=== PATIENT | female | born 1970 | race Caucasian/White ===

== ENCOUNTER → 2021-04-06 15:41 | Outpatient (CLI) | payer BC, SELFPAY ==
--- NOTE | ~2021-04-06 | MM_ITS ---
EXAMINATION: MM screening cherrie BI w hannah HISTORY: Screening mammogram TECHNIQUE: Craniocaudal and mediolateral oblique 3-D tomosynthesis images were obtained and synthetic 2-D images were generated. CAD analysis was submitted and interpreted. COMPARISON: No prior mammogram is available for comparison at this institution. BREAST PARENCHYMAL COMPOSITION: The breasts are almost entirely fatty. FINDINGS: There is no evidence of suspicious mass, calcification, or architectural distortion to sugg est malignancy in either breast. There has been no suspicious interval change. IMPRESSION: 1. No mammographic evidence of malignancy. 2. Recommend routine screening mammography in one year. BI-RADS Category 1: Negative Reviewed, dictated and finalized at location A. PLATE STAMPER
== END ==
DX: Z12.31 Encounter for screening mammogram for malignant neoplasm of breast (principal)
CPT/HCPCS: 77063; 77067

== ENCOUNTER → 2022-08-02 16:54 | Outpatient (CLI) | payer BC, SELFPAY ==
--- NOTE | ~2022-08-02 | MM_ITS ---
EXAMINATION: MM screening cherrie BI w hannah HISTORY: Screening mammogram TECHNIQUE: Craniocaudal and mediolateral oblique 3-D tomosynthesis images were obtained and synthetic 2-D images were generated. CAD analysis was submitted and interpreted. COMPARISON: 04/06/2021 BREAST PARENCHYMAL COMPOSITION: The breasts are almost entirely fatty. FINDINGS: No suspicious mass, calcification, or architectural distortion are identified in either ranjith ast to suggest malignancy. There has been no suspicious interval change. IMPRESSION: 1. No mammographic evidence of malignancy. 2. Recommend routine screening mammography in one year. BI-RADS Category 1: Negative Reviewed, dictated and finalized at location A. IC INFORMATION DIRECTOR
== END ==
PROVIDERS: Visit Provider Obstetrics & Gynecology
DX: Z12.31 Encounter for screening mammogram for malignant neoplasm of breast (principal)
CPT/HCPCS: 77063; 77067

== ENCOUNTER → 2023-06-19 13:56 | Outpatient (CLI) | payer BC, SELFPAY ==
--- NOTE | ~2023-06-19 | XR_ITS ---
XR hip LT min 2V DATE: 06/19/2023 14:27 INDICATION: Left hip pain. No injury. TECHNIQUE: AP and lateral views COMPARISON: None FINDINGS: There is severe left hip joint space narrowing and prominent left hip spurring, consistent with severe left hip primary osteoarthritis. No fracture or dislocation, avascular necrosis or bone destruction is detected. Normal alignment at the pubic symphysis and left sacroiliac joint. IMPRESSION: Severe left hip osteoarthritis Reviewed, dictated and finalized at location L. ITALITY HOST
== END ==
PROVIDERS: PCP Family Medicine; Visit Provider Family Medicine
DX: M16.12 Unilateral primary osteoarthritis, left hip (principal)
CPT/HCPCS: 73502

== ENCOUNTER 2023-07-25 15:30 | Outpatient (RCR) | payer BC, SELFPAY ==
--- NOTE | 2023-06-27 10:55 | OPREHPOC ---
Outpatient Therapy Plan of Care This is a Multidisciplinary Plan of Care that may contain components documented by all disciplines (PT, OT, and ST.) PT Problem 1 PT Problem #1 Knowledge Deficit PT Goal 1 Goal Pt to be IND with issued HEP Target Visit 4 PT Problem 2 PT Problem #2 Pain PT Goal 1 Goal Pt to report pain no greater than 3/10 in the last week. Target Visit 4 PT Goal 2 Goal Pt to report 75% improvement in overall symptoms Target Visit 4 PT Problem 3 PT Problem #3 Impaired Range of Motion PT Goal 1 Goal Pt to demonstrate L hip ROM equal to R hip Target Visit 4 PT Problem 4 PT Problem #4 Impaired Functional Mobil PT Goal 1 Goal Pt to demonstrates floor to stand transfer without external support to promote IND with gardening Target Visit 4 PT Goal 2 Goal Pt to demonstrate a functional lift and carry with 20lb box Target Visit 4
--- NOTE | 2023-06-27 10:55 | PTOPEVAL1 ---
Assessment and note entered by Devan Coyle, PT, DPT Evaluation Information Assessment Status Evaluation Diagnosis L hip pain Onset 1-2 years Subjective Information Pt states she has had progressive L hip pain for multiple years. She states her thigh will get really tight, and stretching this seems to help. She states she feels like she walks wrong d/t arthritis in her feet. She reports L thigh pain this is worse with prolonged rest periods. She states her pain increases when walking on uneven ground. Pt likes to garden, she states her hip is a limiting factor with this. 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 Reported Pain Level Pain Score 2: Self Report Assessment PT Clinical Summary Malinda presents to therapy today for her initial evaluation with a diagnosis of L hip pain. Today she demonstrates slight ROM and strength deficits when compared to her R side. She also ambulates with a midfoot drop and a Trendelenburg pattern. She has decreased core strength and L hip stability. Skilled therapy services are indicated to address the deficits noted above, to improve functional mobility, and to manage pain. LEFS: 62/80 - 13% disability Plan of Care Interventions Electrical Stimulation,Gait Training,Hot Pack/Cold Pack,Manual Therapy,Neuro Re-education, Therapeutic Activities,Therapeutic Exercise PT Services Indicated Yes Treatment Frequency and 1x/wk for 4 visits Duration These treatments will address the objective and functional deficits as defined above. The patient will be advanced safely and appropriately in order for the patient to progress towards his/her prior level of function. Additional exercises will be introduced and as well as a comprehensive home exercise program upon discharge, if needed, ?to ensure carryover of functional gains achieved in the clinic. This treatment plan has been reviewed and agreement upon by the patient.
--- NOTE | 2023-07-25 16:53 | PTOPDC ---
Assessment and note entered by Devan Coyle, PT, DPT Evaluation Information Assessment Status Evaluation Diagnosis L hip pain Onset 1-2 years Subjective Information Pt states her hip and leg have been feeling good, she did have a little bit of joint pain this week but it went away. Reported Pain Level Pain Score 0: Self Report Assessment PT Clinical Summary Malinda presents to therapy today for her progress report following 5 visits of skilled therapy to treat diagnosis of L hip pain. Today she demonstrates improved hip mobility and strength on the L side, she demonstrates improved gait pattern, and improved pain report. She has met or progress well towards her therapy goals and no longer requires skilled services. She will be discharged at this time. Plan of Care PT Services Indicated No
== END 2023-07-28 07:59 | disposition home or self-care (01) ==
LOC: ANHGOSHPT 15:30
PROVIDERS: PCP Family Medicine; Visit Provider Family Medicine
DX: M25.552 Pain in left hip (principal)
CPT/HCPCS: 97110; 97161; 97530

== ENCOUNTER 2023-10-10 15:51 | Outpatient (CLI) | payer BC, SELFPAY ==
--- NOTE | ~2023-10-10 | MM_ITS ---
EXAMINATION: MM screening cherrie BI w hannah HISTORY: Screening mammogram TECHNIQUE: Craniocaudal and mediolateral oblique 3-D tomosynthesis images were obtained and synthetic 2-D images were generated. CAD analysis was submitted and interpreted. COMPARISON: 08/02/2022, 04/06/2021 bilateral screening mammogram examinations BREAST PARENCHYMAL COMPOSITION: The breasts are almost entirely fatty. FINDINGS: There is no evidence of suspicious mass, calcification, or architectural distortion to sugg est malignancy in either breast. There has been no suspicious interval change. IMPRESSION: 1. No mammographic evidence of malignancy. 2. Recommend routine screening mammography in one year. BI-RADS Category 1: Negative Reviewed, dictated and finalized at location B.
== END 2023-10-10 15:52 ==
PROVIDERS: PCP Family Medicine; Visit Provider Obstetrics & Gynecology
DX: Z12.31 Encounter for screening mammogram for malignant neoplasm of breast (principal)
CPT/HCPCS: 77063; 77067

== ENCOUNTER 2023-10-24 11:45 | Outpatient (CLI) | payer BC, SELFPAY ==
[2023-10-24 13:26] LABS: Basophils Absolute Auto 0.1 K/mm3 (0.0-0.1); Basophils Percent Auto 0.5 % (0.2-1.2); Eosinophils Absolute Auto 0.3 K/mm3 (0-0.3); Eosinophils Percent Auto 2.8 % (0-4.4); Hematocrit 38.3 % (37.0-47.0); Hemoglobin 12.5 g/dL (12.0-15.0); Immature Granulocyte Absolute 0.05 K/mm3 (0.00-0.031); Immature Granulocyte Percent A 0.5 % (0-0.5); Lymphocytes Absolute Auto 2.76 K/mm3 (0.9-3.2); Lymphocytes Percent Auto 28.9 % (18.3-44.2); Mean Corpuscular HGB Conc 32.6 g/dl (32-36); Mean Corpuscular Hemoglobin 30.5 pg (26-34); Mean Corpuscular Volume 93.4 fl (80-100); Mean Platelet Volume 10.4 fl (7.4-10.4); Monocytes Absolute Auto 0.5 K/mm3 (0.1-0.6); Monocytes Percent Auto 5.4 % (2.6-8.5); Neutrophils Absolute Auto 5.9 K/mm3 (1.3-6.7); Neutrophils Percent Auto 61.9 % (45.5-73.1); Platelet Count Result 348 k/mm3 (150-375); Red Cell Distribution Width 13.6 % (11.5-14.5); White Blood Count 9.6 K/mm3 (4.5-10.0)
[2023-10-24 15:49] LABS: Hemoglobin A1C 5.6 % (<5.7)
[2023-10-24 18:47] LABS: Alanine Aminotransferase 35 U/L (6-35); Albumin Level 4.5 g/dL (3.5-5.1); Alkaline Phosphatase 103 U/L (38-126); Anion Gap 8 mmol/L (4-12); Aspartate Amino Transferase 38 U/L (14-36); Bilirubin,Total 1.4 mg/dL (0.2-1.3); Blood Urea Nitrogen 15 mg/dL (7-17); Carbon Dioxide 26 mmol/L (22-30); Chloride 104 mmol/L (98-107); Cholesterol 266 mg/dL (0-200); Estimated Glomerular Filt Rate > 60; Glucose 105 mg/dL (65-110); HDL Direct 72 mg/dL; Potassium 4.9 mmol/L (3.4-5.0); Sodium 138 mmol/L (137-145); Triglycerides 118 mg/dL (<150)
[2023-10-24 18:58] LABS: LDL Cholesterol Direct 143 mg/dL
[2023-10-24 19:03] LABS: Free T4 Free Thyroxine 1.66 ng/mL (0.78-2.19); Vitamin D 25 Hydroxy 73.1 ng/mL
[2023-10-24 19:18] LABS: Thyroid Stimulating Hormone 0.448 uIU/mL (0.465-4.680)
== END 2023-10-24 11:46 | disposition home or self-care (01) ==
LOC: ANHGOSHLAB 11:46
PROVIDERS: PCP Family Medicine; Visit Provider Family Medicine
DX: E03.9 Hypothyroidism, unspecified (principal); R53.83 Other fatigue; R73.03 Prediabetes; E55.9 Vitamin D deficiency, unspecified; Z13.220 Encounter for screening for lipoid disorders; Z13.228 Encounter for screening for other metabolic disorders
CPT/HCPCS: 36415; 80053; 80061; 82306; 83036; 84439; 84443; 85025

== ENCOUNTER 2023-12-10 16:14 | Emergency (ER) | payer BC, SELFPAY ==
[2023-12-10 16:19] VITALS: BP 136/83; PULSE 113; RESP 16; TEMP 37.8; O2SAT 97
--- NOTE | 2023-12-10 16:27 | ED.GENADULT ---
HPI - General Adult General Chief complaint: Abdominal Pain Stated complaint: FEVER/STOMACH PAIN/HEADACHE Source: patient and RN notes reviewed Mode of arrival: ambulatory Limitations: no limitations History of Present Illness HPI narrative: 53-year-old female presented for complaint burning with urination, headache, fever up to 102. Onset yesterday. Endorses frequency and urgency along with some lower abdominal pressure and nausea today. She took Pepto-Bismol. Denies hematuria, vomiting, flank pain, constipation, diarrhea, or lethargy. Denies URI symptoms. Completed clindamycin 5 days ago for dental work. Related Data Home Medications Medication Instructions Recorded Confirmed cholecalciferol (vitamin D3) 125 125 mcg PO DAILY 06/19/23 12/10/23 mcg (5,000 unit) capsule multivitamin 1 tablet PO DAILY 06/19/23 12/10/23 spironolactone 100 mg tablet 100 mg PO DAILY 06/19/23 12/10/23 Allergies Allergy/AdvReac Type Severity Reaction Status Date / Time amoxicillin Allergy Mild Hives Verified 12/10/23 16:32 Review of Systems Review of Systems: CONSTITUTIONAL: Denies body aches, reports fever CARDIOVASCULAR: Denies chest pain, palpitations, or edema. RESPIRATORY: Denies cough or dyspnea. GASTROINTESTINAL: reports nausea Denies abdominal pain, vomiting, or diarrhea. GENITOURINARY: Reports dysuria, frequency, urgency, hematuria, denies flank pain SKIN: Denies rash, itching, or wounds. MUSCULOSKELETAL: Denies back pain or myalgia. [facility] Surgical History Surgical History Hx of cholecystectomy Family History Family History Father Melanoma Mother Cancer, skin, squamous cell Hypertension Heart disease Sibling Malignant neoplasm of prostate Grandparent Hypertension Heart disease Cerebrovascular accident Grandparent Diabetes mellitus Heart disease Cerebrovascular accident Social History Social History Social History: Caffeine- 5 cans of diet soda daily Smoking status: Never smoker Second hand tobacco smoke exposure: Yes Alcohol intake: current Alcohol use details: Monthly Substance use: never Do You Feel Safe in your Home?: Yes Lack of Transportation: No Lack of Food: Sometimes True Current Housing: I Have Housing Concerned About Future Housing: No Difficulty Paying Gas/Electric Bills: No Difficulty Paying for Meds: No Currently Unemployed: No Education: Master's Degree or Higher Difficulty w/ Childcare or Family Care: No Living arrangements: with family Occupation/Education: occupation 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 Please see nursing chart for further information. There is no relevant family history pertinent to the presenting complaint Exam Narrative: GENERAL: Well-appearing ENT: Mucous membranes pink and moist. NECK: Normal AROM. Supple. CHEST: No respiratory distress. Clear to auscultation. HEART: Regular rate and rhythm. ABDOMEN: Soft, nontender, nondistended, normal active bowel sounds. No CVA tenderness SKIN: Warm, dry, no rash. NEURO: No focal deficits. Alert and oriented x3. Gait steady. PSYCH: Normal affect. No signs of depression or anxiety. Course Course Emergency Course: Patient is aware of diagnosis, understands and agrees to treatment plan. Anticipatory guidance given. Patient agrees to follow-up as directed and is aware of reasons to seek care at the emergency department. Portions of this record may have been created with voice recognition software Level of [employer]
[2023-12-10 16:31] LABS: EDUAAPPEAR Cloudy; EDUABILI Negative; EDUABLOOD 2+; EDUACOLOR1 Yellow; EDUAGLUCOSE Negative; EDUAKETONE 1+; EDUALEUKO 1+; EDUANITRATE Positive; EDUAPH 5.5; EDUAPROTEIN 2+; EDUASPGRAVITY 1.015; EDUAUROBILI 0.2
== END 2023-12-10 16:40 | disposition home or self-care (01) ==
PROVIDERS: Emergency Provider Nurse Practitioner Family; PCP Family Medicine
DX: N30.01 Acute cystitis with hematuria (principal); B96.20 Unspecified Escherichia coli [E. coli] as the cause of diseases classified elsewhere
CPT/HCPCS: 81003; 87077; 87086; 87186; 99213; G0463

== ENCOUNTER 2023-12-23 18:37 | Emergency (ER) | payer BC, SELFPAY ==
[2023-12-23 18:45] VITALS: BP 141/91; PULSE 85; RESP 16; TEMP 36.8; O2SAT 100
--- NOTE | 2023-12-23 18:53 | ED.SKABFB ---
HPI - Skin/Abscess/Foreign Bdy General Chief complaint: Skin/Abscess/Foreign Body Stated complaint: ABSCESS Time Seen by Provider: 12/23/23 18:40 Source: patient, RN notes reviewed and old records reviewed Mode of arrival: ambulatory Limitations: no limitations History of Present Illness HPI narrative: 53-year-old female to [facility] for complaint abscess to right lower abdomen. Patient states that an asymptomatic nodule had been present for over a year and that it became inflamed and tender to touch 4 days ago. Patient states that she squeezed area at home 3 days ago in an attempt to induce drainage. Patient states that area has become increasingly red, tender with increased drainage. Patient hypertensive in triage. Patient denies pertinent medical history, fever, nausea, joint pain, recent illness, known injury. Respirations even and nonlabored. Patient in no acute distress. Related Data Home Medications Medication Instructions Recorded Confirmed cholecalciferol (vitamin D3) 125 125 mcg PO DAILY 06/19/23 12/23/23 mcg (5,000 unit) capsule multivitamin 1 tablet PO DAILY 06/19/23 12/23/23 spironolactone 100 mg tablet 100 mg PO DAILY 06/19/23 12/23/23 Allergies Allergy/AdvReac Type Severity Reaction Status Date / Time amoxicillin Allergy Mild Hives Verified 12/23/23 18:49 Review of Systems Review of Systems: All systems reviewed & are unremarkable except as noted in HPI and below Constitutional: Constitutional: Reports no additional constitutional complaints Eyes: Eyes: Reports no additional eye complaints ENT: Reports system reviewed and no additional complaints, except as documented Cardiovascular: Cardiovascular: Reports no additional cardiovascular complaints, Denies chest pain and Denies dyspnea Respiratory: Respiratory: Reports no additional respiratory complaints, Denies cough and Denies dyspnea Musculoskeletal: Musculoskeletal: Reports no additional musculoskeletal complaints Neurologic: Reports system reviewed and no additional complaints, except as documented Psychiatric: Psychiatric: Reports no additional psychiatric complaints PMFSH Surgical History Surgical History Hx of cholecystectomy Family History Family History Father Melanoma Mother Cancer, skin, squamous cell Hypertension Heart disease Sibling Malignant neoplasm of prostate Grandparent Hypertension Heart disease Cerebrovascular accident Grandparent Diabetes mellitus Heart disease Cerebrovascular accident Social History Social History Social History: Caffeine- 5 cans of diet soda daily Smoking status: Never smoker Second hand tobacco smoke exposure: Yes Alcohol intake: current Alcohol use details: Monthly Substance use: never Do You Feel Safe in your Home?: Yes Lack of Transportation: No Lack of Food: Sometimes True Current Housing: I Have Housing Concerned About Future Housing: No Difficulty Paying Gas/Electric Bills: No Difficulty Paying for Meds: No Currently Unemployed: No Education: Master's Degree or Higher Difficulty w/ Childcare or Family Care: No Living arrangements: with family Occupation/Education: occupation 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 There is no relevant family history pertinent to the patient complaint. Exam Const: General: cooperative, healthy appearing, comfortable, no acute distress, alert and well nourished Nutritional Appearance: well nourished Orientation/consciousness: patient oriented x3 Limitations: no
== END 2023-12-23 19:27 | disposition home or self-care (01) ==
PROVIDERS: Emergency Provider Nurse Practitioner Family; PCP Family Medicine
DX: L02.211 Cutaneous abscess of abdominal wall (principal)
CPT/HCPCS: 87070; 87075; 87076; 87205; 99213; G0463

== ENCOUNTER 2024-02-19 08:42 | Outpatient (CLI) | payer BC, SELFPAY ==
--- NOTE | ~2024-02-19 | XR_ITS ---
AP view of the pelvis and AP and lateral views of the left hip Clinical history: Pain Findings: No acute fracture or dislocation is seen. Osseous alignment is anatomic. There is severe le ft hip joint osteoarthritis, joint space narrowing, reactive sclerosis, probable subtle chondral cyst ic change at the acetabular roof and femoral head. Femoral head neck junction osteophyte present. Rig ht hip joint is intact. Soft tissues are unremarkable. Impression: Severe left hip joint osteoarthritis, as detailed above. Reviewed, dictated and finalized at location M. Impression: Severe left hip joint osteoarthritis, as detailed above.
== END 2024-02-19 08:43 | disposition home or self-care (01) ==
LOC: GOSHIMG 08:43
PROVIDERS: PCP Orthopaedic Surgery; Visit Provider Orthopaedic Surgery
DX: M16.12 Unilateral primary osteoarthritis, left hip (principal)
CPT/HCPCS: 73502

== ENCOUNTER 2024-06-04 15:44 | Outpatient (CLI) | payer BC, SELFPAY ==
[2024-06-04 18:24] LABS: Basophils Absolute Auto 0.1 K/mm3 (0.0-0.1); Basophils Percent Auto 0.8 % (0.2-1.2); Eosinophils Absolute Auto 0.4 K/mm3 (0-0.3); Hematocrit 34.9 % (37.0-47.0); Hemoglobin 11.8 g/dL (12.0-15.0); Immature Granulocyte Absolute 0.02 K/mm3 (0.00-0.031); Immature Granulocyte Percent A 0.2 % (0-0.5); Lymphocytes Percent Auto 35.9 % (18.3-44.2); Mean Corpuscular HGB Conc 33.8 g/dl (32-36); Mean Corpuscular Hemoglobin 31.7 pg (26-34); Mean Corpuscular Volume 93.8 fl (80-100); Mean Platelet Volume 9.9 fl (7.4-10.4); Monocytes Absolute Auto 0.6 K/mm3 (0.1-0.6); Monocytes Percent Auto 6.2 % (2.6-8.5); Neutrophils Absolute Auto 5.3 K/mm3 (1.3-6.7); Neutrophils Percent Auto 52.9 % (45.5-73.1); Platelet Count Result 350 k/mm3 (150-375); Red Blood Count 3.72 M/mm3 (4.2-5.4); Red Cell Distribution Width 12.9 % (11.5-14.5)
[2024-06-04 18:33] LABS: Iron 63 ug/dL (37-170)
[2024-06-04 18:36] LABS: Alanine Aminotransferase 31 U/L (6-35); Albumin Level 4.3 g/dL (3.5-5.1); Alkaline Phosphatase 97 U/L (38-126); Anion Gap 3 mmol/L (4-12); Aspartate Amino Transferase 35 U/L (14-36); Blood Urea Nitrogen 23 mg/dL (7-17); Carbon Dioxide 28 mmol/L (22-30); Chloride 105 mmol/L (98-107); Estimated Glomerular Filt Rate 47; Glucose 89 mg/dL (65-110); Potassium 4.3 mmol/L (3.4-5.0); Sodium 136 mmol/L (137-145)
[2024-06-04 18:43] LABS: Percent Iron Saturation 17 % (20-50); TOTAL IRON BINDING CAPACITY 376 ug/dL (261-462)
[2024-06-04 19:05] LABS: Thyroid Stimulating Hormone 0.043 uIU/mL (0.465-4.680)
[2024-06-04 19:41] LABS: Folic Acid > 20.0 ng/mL (2.76->20)
== END 2024-06-04 15:45 | disposition home or self-care (01) ==
LOC: ANHGOSHLAB 15:45
PROVIDERS: PCP Family Medicine; Visit Provider Family Medicine
DX: E03.9 Hypothyroidism, unspecified (principal); Z13.228 Encounter for screening for other metabolic disorders; Z12.11 Encounter for screening for malignant neoplasm of colon; D50.9 Iron deficiency anemia, unspecified; R53.83 Other fatigue; D64.9 Anemia, unspecified
CPT/HCPCS: 36415; 80053; 82607; 82728; 82746; 83540; 83550; 84443; 85025

== ENCOUNTER 2024-06-09 11:39 | Outpatient (CLI) | payer BC, SELFPAY ==
[2024-06-09 16:03] LABS: Urine Cotinine NEGATIVE
[2024-06-09 16:39] LABS: MRSA (PCR) NOT DETECTED (NOT DETECTE)
[2024-06-09 21:03] LABS: Hemoglobin A1C 5.5 % (<5.7)
== END 2024-06-09 11:40 | disposition home or self-care (01) ==
PROVIDERS: PCP Clinical Nurse Specialist; Visit Provider Orthopaedic Surgery
DX: Z01.818 Encounter for other preprocedural examination (principal); M16.12 Unilateral primary osteoarthritis, left hip
CPT/HCPCS: 80307; 83036; 87641

== ENCOUNTER 2024-06-09 13:45 | Outpatient (NON) | payer BC, SELFPAY ==
[2024-06-09 19:47] LABS: IFOB Positive Control Positive; Immunochemical Fecal Occult Bl Negative (N)
== END 2024-06-09 13:46 | disposition home or self-care (01) ==
LOC: ANHGOSHLAB 13:45
PROVIDERS: PCP Clinical Nurse Specialist; Visit Provider Family Medicine
DX: D64.9 Anemia, unspecified (principal)
CPT/HCPCS: 82274

== ENCOUNTER 2024-07-08 00:36 | Day surgery (SDC) | payer BC, SELFPAY ==
--- NOTE | 2024-06-09 11:44 | PC.NURSE ---
Report to the Outpatient Waiting Room, entrance under the green pavilion located off [facility], at time __6 am on date __07/08/24 . Planned Procedure Time: __7:30 am .? Time changes happen often and if your time is changed the preop area will call you the afternoon before. - You and your visitor will be asked to self-screen and do not enter if you have any COVID symptoms. Please call surgeon if you need to reschedule. - A mask is optional within the hospital at this time. Patients may have clear liquids (water, carbonated beverages, clear teas, apple juice) until 3 hours prior to surgery( 4:30 am) with a maximum of 20 ounces. - No food from midnight until time of surgery and no smoking. This includes no chewing gum, candy or mints. - Infants may have breast milk until 4 hours before surgery, infant formula 6 hours prior to surgery. - Children will be allowed to drink immediately following surgery.? If applicable, please bring a bottle or sippy cup to assist with drinking. Juice, water, soda, and popsicles are readily available.? For infants on formula, please bring formula the day of surgery.? Pacifiers are allowed. Take only the following medications with a SIP of water on the morning of surgery: _LEVOTHYROXIN, DO NOT STOP ANY OF YOUR OTHER PRESCRIPTION MEDICATIONS PRIOR TO SURGERY EXCEPT THE FOLLOWING Medications to discontinue per physician ____HOLD IBUPROFEN 7 DAYS PRE OP PER DR ADAME LAST DOSE06/30/24. MAY TAKE TYLENOL IF NEEDED FOR PAIN. HOLD ALL VITAMINS AND SUPPLEMENTS 3 DAYS PRE OP .LAST DOSE 07/04/24 Please no make-up, nail cymraes, hairspray, perfume, deodorant, or body powder the day of surgery.? No jewelry (including any body piercings) or valuables the day of surgery, leave them at home.? Please take a shower or bath the night before, or the morning of, surgery with an antibacterial soap.? Wear comfortable, loose fitting clothing.? Children are encouraged to wear pajamas. - Jewelry must be removed prior to entering the operating room.? Rings and piercings that are not removed may be cut off. - The hospital will not accept responsibility for valuables.? - Please leave all valuables, including medications, at home the day of surgery. If you are going home after surgery, a licensed skidder driver must drive you home.? - NO public transportation without another adult if you receive anesthesia. - We recommend that an adult stay with you for 24 hours following discharge. - We also recommend that you do not drive, make important decision, drink alcoholic beverages, or take any drugs that were not prescribed by your health care provider for at least 24 hours after your discharge time. For Pediatric surgeries, we recommend two adults accompany the child home. Follow any additional instructions given to you from your surgeon. VERBAL AND WRITTEN instructions given to _PATIENT AND SPOUSE BRIAN and asked if any additional questions and then verbalized understanding. Patient advised to call surgeon office or pre surgery nurse liaison [phone] if any additional questions.
[2024-06-09 11:48] VITALS: BMI 38.2
[2024-06-09 12:28] VITALS: BP 127/83; PULSE 81; RESP 18; TEMP 36.7; O2SAT 97
[2024-07-08] VITALS (12 sets, daily range): BP systolic 101–137; BP diastolic 52–74; PULSE 70–102; RESP 14–20; TEMP 35.9–37.1; O2SAT 92–100
--- NOTE | ~2024-07-08 | XR_ITS ---
EXAMINATION: XR hip LT min 2V DATE: 07/08/2024 10:29 INDICATION: Left total hip arthroplasty TECHNIQUE: 2 views left hip FINDINGS: There is a left total hip arthroplasty in expected position. Subcutaneous gas with soft ti ssue swelling are consistent with recent surgery. IMPRESSION: 1. Recent left total hip arthroplasty. Reviewed, dictated and finalized at location B. [facility]DERING
--- OUTSIDE RECORDS SUMMARY | 2024-07-08 00:38 | XMS_ITS | Clinical Summary ---
Author Organization [facility] Address [address] [place] [address] Care Team Providers Care Photograph Retoucher Name Role Phone Sandra Frye MD Unavailable Keyla Borrego MD Unavailable [phone] Pcp, Farhan Grant Im-Fm Primary Care Provider Unavailable Source Comments [facility],non-owned Affiliates and Associated Physician Practices is amultiple site organization consisting of ambulatory clinics and hospital sitesin [place], [place], [place] and [place]. This disclosure is being madepursuant to the Care Everywhere program and may not contain all information available regarding this patient. Last updated 18.[facility] Allergies Active Allergy Reactions Criticality Noted Date Comments Amoxicillin Rash Low 10/21/2013 Penicillins 10/18/2013 Medications * Be aware that medications may not be up to date on this document. Alwaysverify current medications with the patient. Medication Sig Dispensed Refills Start Date End Date Status multivitamin daily (THERAGRAN) tablet Take 1 (one) tablet by mouth daily with food Active Cholecalciferol (VITAMIN D) 2000 UNITS CAPS capsule Take 1 (one) capsule by mouth 2 times daily Active triamcinolone (NASACORT AQ) 55 MCG/ACT nasal inhaler USE 2 SPRAYS IN EACH NOSTRIL DAILY 1 Inhaler 6 04/21/2014 Active Synthroid 175 MCG tabletIndications :Hypothyroidism, unspecified type TAKE 1 TABLET BY MOUTH ONCE DAILY BEFORE BREAKFAST 90 tablet 04/21/2023 Active metFORMIN ER 24hr (Glucophage XR) 500 MG tabletIndications :PCOS (polycystic ovarian syndrome) TAKE 2 TABLETS ONCE DAILY 60 tablet 04/28/2023 Active spironolactone (Aldactone) 100 MG tabletIndications :Other androgenic alopecia Take 1 (one) tablet by mouth once daily 90 tablet 06/10/2024 Active spironolactone (Aldactone) 100 MG tabletIndications :Other androgenic alopecia Take 1 (one) tablet by mouth once daily 90 tablet 3 01/31/2023 06/09/2024 Discontinued (Reorder) Active Problems Problem Noted Date Diagnosed Date Primary hypertension 08/19/2022 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 primary monoval ent 12+ yr 0.3mL Purple cap 05/23/2021 INFLUENZA VACCINE 04/02/2022,03/16/2021,03/16/20 18 TDAP (7yrs+) 11/29/2015 Zoster Hzv Vacc Recombinant Inj Im 08/27/2019, iNFLUENZA VACCINE, RECOM-KAMARA, QUADR. (FLUBLOCK QUADRIVALENT; 18Y+) (RIV4) 03/10/2020 Family History Medical History Relation Name Comments None Known Brother None Known Father None Known Maternal Aunt None Known Maternal Grandfather Diabetes Maternal Grandmother Hypertension Maternal Grandmother Cancer - Colon Maternal Uncle Cancer - Other Mother Cancer - Skin, Melanoma Mother Hypercholesterolemia Mother Hypertension Mother Diabetes Other 1 grandparent x2 Hypertension Other 2 grandparent Stroke Other 3 grandparent x2 MS Other 4 grandparent x2 None Known Paternal Aunt None Known Paternal Grandfather Diabetes Paternal Grandmother None Known Paternal Uncle None Known Sister Asthma Neg Hx CVA Neg Hx Cancer - Breast Neg Hx Cancer - Skin, Non Melanoma Neg Hx Eczema Neg Hx Hemophilia Neg Hx Psoriasis Neg Hx Relation Name Status Comments Brother Alive Father Alive Maternal Aunt Maternal Grandfather Maternal Grandmother Maternal Uncle Mother Alive skin cancer Other 1 Other 2 Other 3 Other 4 Paternal Aunt Paternal Grandfather Paternal Grandmother Paternal Uncle Sister Social History Tobacco Use Types Packs/Day Years Used Date Smoking Tobacco: Never Smokeless Tobacco: Never Tobacco Cessation:Counseling Given: Not Answered Alcohol Use Standard Drinks/Week Comments No 0 (1 standard drink = 0.6 oz pur e alcohol) PHQ-2 Answer Date Recorded PHQ2 TOTAL SCORE 0 08/19/2022 Sex and Gender Information Value Date Recorded Sex Assigned at Female 01/27/2021 3:50 PM CDT Gender Identity Female 01/27/2021 3:50 PM CDT Sexual Orientation Not on file Last Filed Vital Signs Vital Sign Reading Time Taken Comments Blood Pressure 130/80 08/19/2022 3:27 PM CDT Pulse 83 08/19/2022 3:15 PM CDT Temperature 36.4 C (97.5 F) 08/19/2022 3:15 PM CDT Respiratory Rate 16 08/19/2022 3:15 PM CDT Oxygen Saturation 99% 08/19/2022 3:15 PM CDT Inhaled Oxygen Concentration - - Weight 111.4 kg (245 lb 8 oz) 08/19/2022 3:15 PM CDT Height 165.1 cm (5' 5 ) 08/19/2022 3:15 PM CDT Body Mass Index 40.85 08/19/2022 3:15 PM CDT Plan of Treatment Upcoming Encounters Date Type Department Care Team (Late st Contact Info) Description 09/24/2024 2:50 PM CDT Office Visit [facility] - Dermatology [address] [place] [address], [place] [phone] Keyla Borrego MD [address] [place] [address] [address] [place] [address] Health Maintenance Due Date Last Done Comments COLON MONITORING 1968 [address] COLONOGRAPHY - COLON CA SCREENING 1968 FIT - COLON CA SCREENING 1968 FLEX SIG - COLON CA SCREENING 1968 PNEUMOCOCCAL VACCINE 50+ (1 of 1 - PCV) 2018 MAMMOGRAM 04/06/2022 04/06/2021, 04/03, 03/05/2019, Additional history exists PAP SMEAR 12/02/2023 12/01/2020, 052 06/2020 (Done Outside Per Patient), 08/14/2016, Additional history exists COVID-19 VACCINE ( - season) 2024 05/23/2021, 08/23/2020, 07/30/2020 INFLUENZA VACCINE (#1) 2024 2, 03/16/2021, 03/10/2020, Additional history exists DEPRESSION SCREENING 06/02/2024 08/19/2022, 07/30/19 22 COLOGUARD (AGES 45-75) - COLON CA SCREENING 03/07/2025 03/07/2022 SCREENING FOR DIABETES 08/19/2025 3, 05/22/2022, 02/18/2022, Additional history exists DTAP/TDAP/TD VACCINES (2 - Td or Tdap) 11/28/2025 11/29/2015 LIPID TESTING 05/22/2027 05/22/2022, 01/31, 02/23/2020, Additional history exists COLONOSCOPY - COLON CA SCREENING 03/15/2029 03/15/2019 (Done Outside Per Report) Colorectal Cancer Screening 03/15/2029 ZOSTER VACCINE Completed 08/27/2019, 01/26/2019 HEPATITIS B VACCINE Discontinued HEPATITIS C SCREENING Discontinued HIB VACCINE Aged Out No longer eligi ble based on patient's age to complete this topic HIV SCREENING Discontinued HPV VACCINE Aged Out No longer eligi ble based on patient's age to complete this topic MENINGOCOCCAL (Group B) VACCINE Aged Out No longer eligible based on patient's age to complete this topic MENINGOCOCCAL VACCINE Aged Out No carlos neil eligible based on patient's age to complete this topic PNEUMOCOCCAL VACCINE Aged Out No long er eligible based on patient's age to complete this topic Goals Goal Patient Goal Type Associated Problems Recent Progress Patient-Stated? Author Blood Pressure < 140/90 Blood Pressure 130/80( 023 3:27 PM CDT) Pamella Barajas Procedures Procedure Name Priority Date/Time Associated Diagnosis Comments HEMOGLOBIN A1C - POINT OF CARE (AMB) Routine 08/19/2022 4:22 PM CDT PCOS (polycystic ovarian syndrome) LIPID PROFILE Routine 05/22/2022 9:11 AM SOFTWARE SALES REPRESENTATIVE Hyperlipidemia, unspecified hyperlipidemia type COLOGUARD TEST Routine 03/07/2022 7:48 AM CDT Colon cancer screening MAMMO BILAT SCREENING Routine 04/06/2021 Encounter for screening for malignant neoplasm of breast, unspecified screening modality CYTOLOGY SMEAR PAP THIN PREP HAROLDO 07/10/1998 9:23 AM SOFTWARE SALES REPRESENTATIVE from Last 3 Months or Most Recently Relevant to Health Maintenance Results * HEMOGLOBIN A1C - POINT OF CARE (AMB) (08/19/2022 4:22 PM CDT) Hemoglobin A1c POCT 5.5 % [facility] [address] Expiration Date 04/30/2024 [facility] Lot # [id number] [facility] [place] QC Verified Yes Yes [facility] [place] Blood BLOOD SPECIMEN / Unknown 08/19/2022 4:22 PM CDT Odilia Domínguez MD LAB - POINT OF CARE ORDERABLES [facility] [address] [phone] * (ABNORMAL) LIPID PROFILE (05/22/2022 9:11 AM SOFTWARE SALES REPRESENTATIVE) Cholesterol 232(H) 100 - 199 mg/dL [facility] ACCOUNT BILL Triglycerides 99 0 - 149 mg/dL [facility] ACCOUNT BILL HDL Cholesterol 67 >39 mg/dL [facility] ACCOUNT BILL VLDL Calculated 17 5 - 40 mg/dL [facility] ACCOUNT BILL LDL Calculated 148(H) 0 - 99 mg/dL [facility] ACCOUNT BILL Comment NOT AVAILABLE [facility] ACCOUNT BILL Comment: FASTING Result cannot be obtained for this observation. Blood BLOOD SPECIMEN / Unknown 05/22/2022 9:11 AM SOFTWARE SALES REPRESENTATIVE 05/22/2022 Narrative Resulting Agency Comment Lab Testing performed at: [facility] [place] [address] [facility] [phone] Connie D Dat RADIAL ARM SAW OPERATOR-BISQUE FINISHER LAB - CHEMISTR Y ORDERABLES [facility] [place] [address] [place] [address] * [id number] COLOGUARD TEST *Associate with Z12.11 OR Z12.12 Dx Codes* (03/07/2022 7:48 AM CDT) Cologuard Negative Negative [facility] Comment: NEGATIVE TEST RESULT. A negative Cologuard result indicates a low likelihood that a colorectal cancer (CRC) or advanced adenoma (adenomatous polyps with more advanced pre-malignant features) is present. The chance that a person with a negative Cologuard test has a colorectal cancer is less than 1 in 1500 (negative predictive value >99.9%) or has an advanced adenoma is less than 5.3% (negative predictive value 94.7%). These data are based on a prospective cross-sectional study of 10,000 individuals at average risk for colorectal cancer who were screened with both Cologuard and colonoscopy. (Mignon Schofield et al, N Engl J Med 2014;370(14):9557-0398) The normal value (reference range) for this assay is negative. COLOGUARD RE-SCREENING RECOMMENDATION: Periodic colorectal cancer screening is an important part of preventive healthcare for asymptomatic individuals at average risk for colorectal cancer. Following a negative Cologuard result, the [place] [employer] Society and U.S. Multi-Society Task Force screening guidelines recommend a Cologuard re-screening interval of 3 years. References: [place] [employer] Guideline for Colorectal Cancer Screening: https://www.cancer.org/cancer/zplna-ntzcqu-ohcmzf/htymtfqfw-ujtjxnwyz-qzxokno/ acs-recommendations.html.; Juice BLISS, Jerrell BUITRAGO, Selam PEGUERO, Colorectal Cancer Screening: Recommendations for Physicians and Patients from the U.S. Multi-Society Task Force on Colorectal Cancer Screening , Am J Gastroenterology 2017; 112:5156-9695. TEST DESCRIPTION: Composite algorithmic analysis of stool DNA-biomarkers with hemoglobin immunoassay. Quantitative values of individual biomarkers are not reportable and are not associated with individual biomarker result reference ranges. Cologuard is intended for colorectal cancer screening of adults of either sex, 45 years or older, who are at average-risk for colorectal cancer (CRC). Cologuard has been approved for use by the U.S. FDA. The performance of Cologuard was established in a cross sectional study of average-risk adults aged 50-84. Cologuard performance in patients ages 45 to 49 years was estimated by sub-group analysis of near-age groups. Colonoscopies performed for a positive result may find as the most clinically significant lesion: colorectal cancer [4.0%], advanced adenoma (including sessile serrated polyps greater than or equal to 1cm diameter) [20%] or non- advanced adenoma [31%]; or no colorectal neoplasia [45%]. These estimates are derived from a prospective cross-sectional screening study of 10,000 individuals at average risk for colorectal cancer who were screened with both Cologuard and colonoscopy. (Mignon Schofield et al, N Engl J Med 2014;370(14):4657-6987.) Cologuard may produce a false negative or false positive result (no colorectal cancer or precancerous polyp present at colonoscopy follow up). A negative Cologuard test result does not guarantee the absence of CRC or advanced adenoma (pre-cancer). The current Cologuard screening interval is every 3 years. ([place] [employer] Society and U.S. Multi-Society Task Force). Cologuard performance data in a 10,000 patient pivotal study using colonoscopy as the reference method can be accessed at the following location: www.t-Art/results. Additional description of the Cologuard test process, warnings and precautions can be found at www.InMyShowrd.com. Stool STOOL SPECIMEN / Unknown 03/07/2022 7:48 AM CDT 03/08/2022 1:19 PM CDT Connie Daugherty RADIAL ARM SAW OPERATOR-BISQUE FINISHER LAB - CHEMISTR Y ORDERABLES [facility] [address] [place] [id number] [employer] [place] [address] [place] [address] * MAMMO BILAT SCREENING (04/06/2021) Anatomical Region Laterality Modality Breast Bilateral Mammography 04/06/2021 Odilia Domínguez MD MAMMO ORDERABLES * CYTOLOGY SMEAR PAP THIN PREP (07/10/1998 9:23 AM SOFTWARE SALES REPRESENTATIVE) Result CASE NUMBER [id number] Comment: ORDERING PHYSICIAN ALBERTA GARZA SPECIMEN TYPE PAP Smear Date 07/10/1998 Procedure Cervical/Endocervical, 1 Vial for Thin Prep Received Specimen Adequacy Satisfactory for Evaluation Categorization Within Normal Limits Snomed. 07/12/1998 1140 <1> Scraper Operator Araseli Allan (ASCP) PAP Footnote The PAP smear is only a screening procedure to aid in the detection of cervical cancer and its precursors. It is not a diagnostic procedure and should not be used as the sole means to detect cervical cancer. Both false negative and false positive results have been experienced. MISCELLANEOUS SAMPLES / Unknown 07/10/1998 9:23 AM SOFTWARE SALES REPRESENTATIVE 07/11/1998 9:23 AM SOFTWARE SALES REPRESENTATIVE Historical Provider LAB - PATHOLOGY/C YTOLOGY ORDERABLES from Last 3 Months or Most Recently Relevant to Health Maintenance Care Teams Photograph Retoucher Relationship Specialty Start Date End Date Pcp, Farhan Grant - PCP - General 12/12/22 Sandra Frye MD [address] [place] [address] Obstetrics and Gynecology 02/18/22 Keyla Borrego MD [address] [facility] [address] [place] [phone] Surgeon Dermatology 02/18/22
--- OUTSIDE RECORDS SUMMARY | 2024-07-08 00:38 | XMS_ITS | Referral Summary ---
Author Organization [facility] Address [address] [facility] [place] [address] Care Team Providers Care Rag Cutting Machine Operator Name Role Phone Sandra Frye MD Unavailable Keyla Borrego MD Unavailable [phone] Pcp, Farhan Grant Im-Fm Primary Care Provider Unavailable Source Comments [facility],non-owned Affiliates and Associated Physician Practices is amultiple site organization consisting of ambulatory clinics and hospital sitesin [place], [place], [place] and [place]. This disclosure is being madepursuant to the Care Everywhere program and may not contain all information available regarding this patient. Last updated 18.[facility] Encounters Date Type Department Care Team Description 06/09/2024 Refill [facility] - Dermatology [address] [place] [address], [place] [address] Keyla Borrego MD MEDICATION REFILL from Last 3 Months Allergies Active Allergy Reactions Criticality Noted Date [...] Date Resolved Date Other rosacea 09/09/2018 02/18/2022 Immunizations Name Administration Dates Next Due [employer] primary monoval ent 12+ yr 0.3mL Purple cap 05/23/2021 INFLUENZA VACCINE 04/02/2022,03/16/2021,03/16/20 18 TDAP (7yrs+) 11/29/2015 Zoster Hzv Vacc Recombinant Inj Im 08/27/2019, iNFLUENZA VACCINE, RECOM-KAMARA, QUADR. (FLUBLOCK QUADRIVALENT; 18Y+) (RIV4) 03/10/2020 Social History Tobacco Use Types Packs/Day Years [...] Description 09/24/2024 2:50 PM CDT Office Visit [facility] - Dermatology [address] [facility], [place] [phone] Keyla Borrego MD [address] [facility] [address] [place] [address] Goals Goal Patient Goal Type Associated Problems Recent Progress Patient-Stated? Author Blood Pressure < 140/90 Blood Pressure 130/80( 023 3:27 PM CDT) Pamella Barajas Procedures Procedure Name Priority Date/Time Associated Diagnosis Comments HEMOGLOBIN A1C - POINT OF CARE (AMB) Routine 08/19/2022 4:22 PM CDT PCOS (polycystic ovarian syndrome) LIPID PROFILE Routine 05/22/2022 9:11 AM COUNTER CLERK TRACTOR PARTS Hyperlipidemia, unspecified hyperlipidemia type COLOGUARD TEST Routine 03/07/2022 7:48 AM CDT Colon cancer screening MAMMO BILAT SCREENING Routine 04/06/2021 Encounter for screening for malignant neoplasm of breast, unspecified screening modality CYTOLOGY SMEAR PAP THIN PREP HAROLDO 07/10/1998 9:23 AM COUNTER CLERK TRACTOR PARTS from Last 3 Months or Most Recently Relevant to Health Maintenance Results * HEMOGLOBIN A1C - POINT OF CARE (AMB) (08/19/2022 4:22 PM CDT) Hemoglobin A1c POCT 5.5 % [facility] [place] Expiration Date 04/30/2024 [facility] [place] Lot # [id number] [facility] [place] QC Verified Yes Yes [facility] [place] Blood BLOOD SPECIMEN / Unknown 08/19/2022 4:22 PM CDT Odilia Domínguez MD LAB - POINT OF CARE ORDERABLES [facility] [address] [place], [place] [address] [phone] * (ABNORMAL) LIPID PROFILE (05/22/2022 9:11 AM COUNTER CLERK TRACTOR PARTS) Cholesterol 232(H) 100 - 199 mg/dL [facility] [...] BLOOD SPECIMEN / Unknown 05/22/2022 9:11 AM COUNTER CLERK TRACTOR PARTS 05/22/2022 Narrative Resulting Agency Comment Lab Testing performed at: [facility] [place] [address] [facility] [phone] Connie Daugherty PROGRAMMING MANAGER-FRAME STYLIST LAB - CHEMISTR Y ORDERABLES [facility] ACCOUNT BILL [address] [place] [address] * [id number] COLOGUARD TEST *Associate with Z12.11 OR Z12.12 Dx Codes* (03/07/2022 7:48 AM CDT) Cologuard Negative Negative [facility] Comment: NEGATIVE TEST RESULT. A negative [...] Schofield et al, N Engl J Med 2014;370(14):7110-0608) The normal value (reference range) for this assay is negative. COLOGUARD RE-SCREENING RECOMMENDATION: Periodic colorectal cancer screening is an important part of preventive healthcare for asymptomatic individuals at average risk for colorectal cancer. Following a negative Cologuard result, the [place] Cancer Society and U.S. Multi-Society Task Force screening guidelines recommend a Cologuard re-screening interval of 3 years. References: [place] [employer] Guideline for Colorectal Cancer Screening: https://www.cancer.org/cancer/wlrza-rxramh-aygaee/abbcuhcob-kdaiesaag-rwasxcn/ acs-recommendations.html.; Juice DK, Jerrell BUITRAGO, Selam JacksonK, Colorectal Cancer Screening: Recommendations for Physicians and Patients from the U.S. Multi-Society Task Force on Colorectal Cancer Screening , Am J Gastroenterology 2017; 112:7586-2131. TEST DESCRIPTION: Composite algorithmic analysis of stool [...] screened with both Cologuard and colonoscopy. (Mignon Zhang al, N Engl J Med 2014;370(14):4413-9365.) Cologuard may produce a false negative or false positive result (no colorectal cancer or precancerous polyp present at colonoscopy follow up). A negative Cologuard test result does not guarantee the absence of CRC or advanced adenoma (pre-cancer). The current Cologuard screening interval is every 3 years. ([place] [employer] Society and U.S. Multi-Society Task Force). Cologuard performance data in a 10,000 patient pivotal study using colonoscopy as the reference method can be accessed at the following location: www.Stkr.it/results. Additional description of the Cologuard test process, warnings and precautions can be found at www.cologuard.iFollo. Stool STOOL SPECIMEN / Unknown 03/07/2022 7:48 AM CDT 03/08/2022 1:19 PM CDT Connie Daugherty PROGRAMMING MANAGER-FRAME STYLIST LAB - CHEMISTR Y ORDERABLES [email or web address] [address] [place] [address] [email or web address] [address] [place] [address]. [place] [address] * MAMMO BILAT SCREENING (04/06/2021) Anatomical Region Laterality Modality Breast Bilateral Mammography 04/06/2021 Odilia Domínguez MD MAMMO ORDERABLES * CYTOLOGY SMEAR PAP THIN PREP (07/10/1998 9:23 AM COUNTER CLERK TRACTOR PARTS) Result CASE NUMBER [id number] Comment: ORDERING PHYSICIAN ALBERTA GARZA SPECIMEN TYPE PAP Smear Date 07/10/1998 Procedure Cervical/Endocervical, 1 Vial for Thin Prep Received Specimen Adequacy Satisfactory for Evaluation Categorization Within Normal Limits Snomed. 07/12/1998 1140 <1> Mailing Clerk Annmarie Bridget, C.T. (ASCP) PAP Footnote The PAP smear is only a screening procedure to aid in the detection of cervical cancer and its precursors. It is not a diagnostic procedure and should not be used as the sole means to detect cervical cancer. Both false negative and false positive results have been experienced. MISCELLANEOUS SAMPLES / Unknown 07/10/1998 9:23 AM COUNTER CLERK TRACTOR PARTS 07/11/1998 9:23 AM COUNTER CLERK TRACTOR PARTS Historical Provider LAB - PATHOLOGY/C YTOLOGY ORDERABLES from Last 3 Months or Most Recently Relevant to Health Maintenance Care Teams Rag Cutting Machine Operator Relationship Specialty Start Date End Date [facility] - General 12/12/22 Sandra Frye MD [address] [place] [phone] Obstetrics and Gynecology 02/18/22 Keyla Borrego MD [address] [facility] [address] [place] [phone] Surgeon Dermatology 02/18/22
--- OUTSIDE RECORDS SUMMARY | 2024-07-08 00:39 | XMS_ITS | Data Portability ---
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 Plan of Treatment Reminders Order Date Submit Date Provider Last Modified By Organization Details Last Modified Time Details Appointments None record ed. Lab None record ed. Referral None record ed. Procedures None record ed. Surgeries None record ed. Imaging XR, foot 016 05/22/20 16 BRANDON Not available 6 17:24:16 Medication Orders None record ed. Patient TargetsNo targets recorded. Patient Instructions Encounter Date Encounter Id Patient Instructions Last Modified By Organization Details Last Modified Time 05/22/2016 [id number] The patient will perform gastroc soleus stretching exercises, holding the stretch for 10 seconds, 30 times a day. {{He She*}} will also massage the plantar fascia with a frozen 16 ounce water bottle , and will perform strengthening of the flexor musculature 5 minutes daily. We also discussed trigger point massage, {{He She*}} will wear supportive shoes with heel lift at all times, and will not walk barefoot. The patient will return to the office in two weeks, if symptoms persist.she will return to the office in 3 weeks. [email or web address] Not available 05/23/2016 18:50:04 Reason for Referral None Reported. Results Created Date Observation Date Name Description Value Unit Range Abnormal Flag Note LastModifiedBy Organization Detail LastModifiedTime 05/22/20 16 05/22/2016 XR, foot No observ ation record ed. [email or web address] [facility] (No Mri) [address], [place], [address], 05/31/2016 20:10:53 Result Notes None recorded. Procedures Surgical History Date Name Laterality Status Provider Name and Address Organization Details Recorded Time Cholecystectomy completed Noemí Trujillo [facility], [facility] 05/22/2016 10:12:29 Foot Surgery completed Noemíelda Trujillo [facility] 05/22/2016 10:12:40 Imaging Results Imaging Date Name Status LastModified by Organiz ation Details LastModified Time 05/22/2016 XR, foot completed [facility] ([facility]) [address] [facility] [address], [place], [address], 05/31/2016 20:10:53 Procedure Notes None recorded. Medical Equipment None Reported. Allergies Allergen ID Allergen Name Allergen Category Reaction Reaction Severity Criticality Documentation Date Start Date Code Code System Note Provider Name and Address Organization Details Recorded Time 16327 amoxicill in medicatio n rash Not available Not available 05/22/2016 723 RxNorm Noemí Solshiv [facility] [employer] [facility] 6 10:08:58 Medications Name Sig Start Date Stop Date Status Note LastModified by Organization Details LastModified Time Synthroid 200 mcg tablet active Not Available Not Available N ot Available spironolactone 25 mg tablet active Not Available Not Available Not Available metformin ER 500 mg tablet,extended release 24 hr active Not Available Not Availabl e Not Available metronidazole 0.75 % topical gel active Not Available Not Available Not Available spironolactone 50 mg tablet active Not Available Not Available Not Available Aspir-Mago 325 mg tablet,delayed release Take 1 tablet every day by oral route. active Not Available Not Available No t Available Vitamin D active Not Available Not Starla ilable Not Available Nasacort active Not Available Not Avai lable Not Available multivitamin active Not Available Not Available Not Available Vitals Date Recorded Heart rate Body weight Body height Body mass index (BMI) Systolic blood pressure Diastolic blood pressure Provider Name and Address Organization Details Last Updated DateTime 6 98 /min 308716. 09 g 165.1 cm 41.6 kg/m2 123 mm[Hg] 81 mm[Hg] Noemí Solshiv [employer] [facility], [facility] 6 10:00:01 Social History Question Answer Notes LastModified by Organizat ion Details LastModified Time Tobacco Smoking Status Never Smoker Noemí Pattenshiv val[facility], [facility], [facility] 05/22/2016 10:00:36 What Is Your Level Of Alcohol Consumption? Occasional Information not available 05/22/2016 How Much Tobacco Do You Chew? None Information not available 05/22/2016 Are You Currently Employed? Yes Information not available 05/22/2016 Which Illicit Or Recreational Drugs Have You Used? 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 With Others Information not available 05/22/2016 Marital Status Informatio n not available 05/22/2016 How Many Children Do You Have? 0 Information not available 05/22/2016 How Much Tobacco Do You Smoke? No Information not available 05/22/2016 How Many Years Have You Smoked Tobacco? 0 Information not available 05/22/2016 Sex: Unknown Functional Status None recorded. Mental Status None recorded. Family History Relationship Description Onset Age of this Age Resolved Age Notes LastModified by Organization Details LastModified Time Paternal Grandfather Heart disease [email or web address] Not available 05/22 10:11:11 Mother Hypertensive disorder [email or web address] Not available 05/22 10:11:23 Mother Malignant neoplastic disease skin cancer [email or web address] Not available 05/22/2016 10:12:15 Maternal Grandmother Diabetes mellitus [email or web address] Not available 05/22 10:11:34 Maternal Grandmother Cerebrovascu lar accident [email or web address] Not available 10:11:47 Medical History Condition Response HIV or AIDS N Arythmia N Gout N parkinsons N lupus N hernia N Global N hearing loss N Blood Clots N Depression N Lung Disease N Pacemaker N duodenal ulcers N Congestive Heart Failure N pancreatitis N Alcoholism N annuerism N Anxiety Disorder N Last Seen by PCP N sleep apnea N Cancer N Melanoma N Stroke N Leg or Foot Ulcers N heart murmur N Hypercholesterolemia N tia N Liver Disease N Rheumatoid Arthritis N Fibromyalgia N Osteoarthritis N Migraines N Thyroid Problems N Broken bones N emphysema N Lyme's Disease N Anemia N Dermatitis N Keloid N Heart Attack (NE) N Mental Illness N Stomach Ulcers N Diabetes N Bleeding Disorder N Seizures/Epilepsy N Tuberculosis N fracture N Kidney Failure N hypothyroid N Diverticulitis N Dementia N psoriasis N Asthma N skin cancer N Peripheral Vascular Disease N Eye Disorder N hormone imbalance N GERD/Reflux N Hepatitis N Neuropathy N Heart Disease N Hypertension N Osteoporosis N Gynecological HistoryNo gynecological history recorded. Obstetrics History GPAL:G 0 P 0 0 0 0 Past Encounters Encounter ID Performer Location Encounter Start Date Encounter Closed Date Diagnosis/Indication Diagnosis SNOMED-CT Code Diagnosis ICD10 Code Diagnosis Note [id number] Rolly Trujillo DPM [facility] [address] [place] [address] 05/22/2016 09:34:18 05/22/2016 10:32:45 Heel pain 6855654 M79.672 Enthesopat hy of foot region 303406108 M77.9 M77.52 Health Concerns Section Related Observation LastModified by Organization Detai ls LastModified Time None Recorded Concern Status LastModified by Organization Details LastModified Time None Recorded Advance Directives Directive None Recorded Payers Encounter Date Sequence Insurance Name Policy Number Policy [employer] Covered Member ID [employer]ell[employer] Member ID Guarantor Name 05/22/2016 1 [facility] - OPEN ACCESS - CHOICE PLUS (POS) [id number] Malinda Garrido [id number] Malinda Garrido Notes Date Note Type Note Provider Name and Address Organization Details Recorded Time 05/22/2016 text/html patient complains of a 6 month history of pain on and off again along the instep of the left foot. The patient also has some plantar arch pain. She denies trauma. The longer she is on her foot, the more pain she has. Rolly Trujillo DPM [address], [place], [address], [facility] 05/23/2016 18:50:45 OBGyn Episode No OBEpisode recorded.
--- OUTSIDE RECORDS SUMMARY | 2024-07-08 00:39 | XMS_ITS | Data Portability ---
Author Organization [facility] [place] Address [address] [place] [address] [place] [address] Care Team Providers Care Senior Boiler Operator Name Role Phone RUDOLPH SHELL Primary Care Provider [phone] Assessment Encounter Date Assessment Date Assessment LastModified by Organization Details LastModified Time 11/30/2020 11/30/2020 Annual gynecological exam performed. Patient will come back in a year unless there are new symptoms. Not available 11/30/2020 16:47:26 06/18/2022 06/18/2022 Annual gynecological exam performed. Patient will come back in a year unless there are new symptoms. [email or web address] Not available 06/18/2022 15:14:18 07/08/2023 07/08/2023 Annual gynecological exam performed. Patient will come back in a year unless there are new symptoms. [email or web address] Not available 07/08/2023 17:21:11 Plan of Treatment Reminders Order Date Submit Date Provider Last Modified By Organization Details Last Modified Time Details Appointments None recorded. Lab None recorded. Referral None recorded. Procedures None recorded. Surgeries None recorded. Imaging US, pelvis 2019 020 [email or web address] [address], [place], [address], 0 19:23:22 US, transvagina l 2019 020 BRANDON [place], [place], [address], 1 05:03:20 MAMMO, screening, digital, [facility] [address], [place], [address], 4 05:01:33 Medication Orders None recorded. Patient TargetsNo targets recorded. Patient InstructionsNo instructions recorded. Reason for Referral None Reported. Results Created Date Observation Date Name Description Value Unit Range Abnormal Flag Note LastModifiedBy Organization Detail LastModifiedTime 07/18/19 21 07/18/2020 , bismark lane md interpretati on Not Available [facility] [address], [place], [address], 12/13/2019 15:54:31 12/02/19 21 12/01/2020 IMAGE GUIDE D PAP AND HPV REGAR DLESS image guided Pap, HPV regardless of Pap result SEE RESULT S BELOW CASE REPOR T: Cytol ogy Gynec ologi jarrell Repor t Case: [id number] Autho bhavik g Provi chandan: Winston Frye MD Colle cted: 12/01 0809 Order ing Locat ion: [place] Patho logy Recei jonathan: 12/02 0244 First Scree n: Ever Knox am, CT Speci men: Scree landen Pap - Image d, Cervi x STATE MENT OF ADEQU ACY: Satis facto ry for evalu ation Trans forma tion zone compo nent absen t FINAL DIAGN OSIS: Negat alyssia for Intra epith elial Leswalter n or Rebeca michael Elect dereck loco pauline d by Ever Knox am, CT on 021 at 6:24 AM ----- ----- ----- ----- ----- ----- ----- ----- ----- ----- ----- ----- ----- ----- ----- ----- ----- ---- HPV RESUL TS: HPV mRNA E6/E7 : No HPV mRNA Detec kobe NOTE: This high risk HPV mRNA assay detec ts fourt een high- risk HPV types (16, 18, 31, 33, 35, 39, 45, 51, 52, 56, 58, 59, 66, 68) witho ut diffe renti ation . CHART ABLE COMME NT: Note: This speci men was revie wed by a Cytot echno logis t and/o r Patho logis t (as indic ated in this repor t) after evalu ation using the Thinp rep Imagi ng Syste m. CLINI JARRELL INFOR MATIO N: Menst rual Statu s: LMP (if appli cable ): 010 Clini jarrell Histo ry/Pr eviou s Pap: Type of Neopl kiel (if appli cable ): Other Histo ry: Hormo baljit (if appli cable ): PAP EDUCA SKYLAR L NOTE: The Pap Test is a scree landen test with an inher ent false negat alyssia rate. Liqui d-bas e sampl ing may decre ase, but will not elimi terese, false negat alyssia resul ts. A negat alyssia resul t does not precl ude the prese nce and/o r devel opmen t of disea se, since the prese nce of abnor mal cells in the sampl e depen ds on the locat ion of the lesio n and sampl ing techn ique. Yovany nued regul ar scree landen is the best metho d of cance r preve ntion . If repor kobe cytol ogic findi ng do not corre late with physi jarrell and/o r histo rical findi ngs, furth er inves tigat ion is recom willy d, as clini lakshmi warra nted. Not Available [facility] (Lab) [address], [place], [address], 12/06/2020 07:27:00 07/08/19 24 07/08/2023 IMAGE GUIDE D PAP AND HPV REGAR DLESS image guided Pap, HPV regardless of Pap result SEE RESULT S BELOW CASE REPOR T: Cytol ogy Gynec ologi jarrell Repor t Case: [id number] Autho bhavik carballo Provi chandan: Nida Paredes, CHERYL Armstrong cted: 07/08 1726 Order ing Locat ion: [place] Patho logagustin Recei jonathan: 07/09 0109 First Scree n: Natalie Whyte, CT Rescr een: Remedios Mauricio ret, CT Speci men: Mary lagunag Pap - Image d, Cervi x STATE MENT OF ADEQU ACY: Satis facto ry for evalu ation Trans forma tion zone compo nent absen t The absen ce of an endoc ervic al compo nent was confi rmed by an addit ional mary ner. FINAL DIAGN OSIS: Negat alyssia for Intra epith elial Ayesha singh or Rebeca michael (NIL) . Elect dereck loco pauline d by Remedios Mauricio ret, CT on 024 at 1:16 PM ----- ----- ----- ----- ----- ----- ----- ----- ----- ----- ----- ----- ----- ----- ----- ----- ----- ---- HPV RESUL TS: HPV mRNA E6/E7 : No HPV mRNA Detec kobe NOTE: This high risk HPV mRNA assay detec ts fourt een high- risk HPV types (16, 18, 31, 33, 35, 39, 45, 51, 52, 56, 58, 59, 66, 68) witho ut diffe renti ation . COMME NT: This speci men was revie wed by a Cytot echno logis t and/o r Patho logis t (as indic ated in this repor t) after evalu ation using the Thinp rep Imagi ng Syste m. CLINI JARRELL INFOR MATIO N: Menst rual Statu s: LMP (if appli cable ): Clini jarrell Histo ry/Pr eviou s Pap: Type of Neopl kiel (if appli cable ): Signi fican t Clini jarrell Findi ngs: Other Histo ry: Hormo baljit (if appli cable ): PAP EDUCA SKYLAR L NOTE: The Pap Test is a scree landen test with an inher ent false negat alyssia rate. Liqui d-bas ed sampl ing may decre ase, but will not elimi terese, false negat alyssia resul ts. A negat alyssia resul t does not precl ude the prese nce and/o r devel opmen t of disea se, since the prese nce of abnor mal cells in the sampl e depen ds on the locat ion of the lesio n and sampl ing techn ique. Yovany nued regul ar scree landen is the best metho d of cance r preve ntion . If repor kobe cytol ogic findi ng do not corre late with physi jarerll and/o r histo rical findi ngs, furth er inves tigat ion is recom willy d, as clini lakshmi warra nted. Not Available [facility] (Lab) [address], [place], [address], 07/10/2023 14:20:32 12/13/19 20 US, pelvi s No observ ation record ed. sanford [address], [facility], [place], [address], 12/13/2019 20:24:05 04/09/20 21 04/06/2021 MAMMO , scree landen, bilat eral No observ ation record ed. sanford [facility] [address], [place], [address], 04/23/2021 11:41:22 08/06/19 23 08/02/2022 imagi ng/di agnos tic resul t No observ ation record ed. BRANDON [facility] [address], [place], [address], 10/20/2023 17:04:56 10/10/19 24 10/10/2023 imagi ng/di agnos tic resul t No observ ation record ed. [facility] [address], [place], [address], 10/20/2023 17:06:26 10/10/19 24 10/10/2023 imagi ng/di pinaos tic resul t No observ ation record ed. BRANDON [facility] [address], [place], [address], 10/20/2023 17:06:45 Result Notes None recorded. Problems Name Problem SNOMED Code Status Onset Date Resolution Date Notes Provider Name and Address Organization Details Recorded Time Lesion of ovary Completed 201911/30/2020 Other ovarian cyst, right side;Rec orded Elsewher e: No Locat ion: [facility] S ource: EHR Alteration Workroom Supervisor mitesh: N Practi ce ID: 0001 Ariel lable Time: 03:15:00 PM [facility] 16:49:28 Abnormal uterine bleeding [id number] 100 Completed 201811/30/2020 Other specifie d abnormal uterine and vaginal bleeding ;Recorde d Elsewher e: No Locat ion: [facility] S ource: EHR Alteration Workroom Supervisor mitesh: N Practi ce ID: 0001 Ariel lable Time: 03:30:00 PM Janet [facility] 16:49:39 Lesion of ovary Completed 201911/30/2020 Other ovarian cyst, left side;Rec orded Elsewher e: No Locat ion: [facility] S ource: EHR Alteration Workroom Supervisor mitesh: N Practi ce ID: 0001 Ariel lable Time: 02:45:00 PM Janet [facility] 16:49:[address] Concept Completed 201811/30/2020 Encntr for under baster exam (general ) (routine ) w/o abn findings ;Recorde d Elsewher e: No Locat ion: [facility] S ource: EHR Alteration Workroom Supervisor mitesh: N Practi ce ID: 0001 Ariel lable Time: 10:30:00 AM [facility] 16:49:35 Screenin g for malignan t neoplasm of rectum Completed 201811/30/2020 Encounte r for screenin g for malignan t neoplasm of rectum;P ractice ID: [id number] [facility] 16:49:33 Problem Notes None recorded. Procedures Surgical History Date Name Laterality Status Provider Name and Address Organization Details Recorded Time 021 Date of Last Pap Smear completed Shanna Quispe [facility] 06/18/2022 15:15:53 020 Date of Last Mammogram completed [facility] 11/30/2020 16:48:11 019 Date of Last [facility]2023 17:22:07 019 completed [facility] 11/30/2020 16:48:11 019 Colonoscopy completed [facility] 07/08/2023 18:38:17 005 Cholecystectomy completed [facility] 11/29/2020 13:04:12 993 procedure on foot completed [facility] 11/29/2020 13:03:57 Imaging Results Imaging Date Name Status LastModified by Organiz ation Details LastModified Time 12/13/2019 US, pelvis completed sanford Hwang [address], [place], [address], 12/13/2019 20:24:05 04/06/2021 MAMMO, screening, bilateral completed sanford [facility] [address], [place], [address], 04/23/2021 11:41:22 08/02/2022 imaging/diagno stic result completed [facility] [address], [place], [address], 10/20/2023 17:04:56 10/10/2023 imaging/diagno stic result completed [facility] [address], [place], [address], 10/20/2023 17:06:26 10/10/2023 imaging/diagno stic result completed [facility] [address], [place], [address], 10/20/2023 17:06:45 Procedure Notes None recorded. Medical Equipment None Reported. Allergies Allergen ID Allergen Name Allergen Category Reaction Reaction Severity Criticality Documentation Date Start Date Code Code System Note Provider Name and Address Organization Details Recorded Time 70905 Product containin g penicilli n and antibioti c (product) medicatio n Not available Not available Not available 11/30/2020 81746 05 SNOMED Janet Wood [facility] [place] [facility] 16:48:33 Medications Name Sig Start Date Stop Date Status Note LastModified by Organization Details LastModified Time metformin 500 mg tablet 07/08 completed Not Available Not Available Not Available Synthroid 200 mcg tablet 11/30 completed Not Available Not Available Not Available meloxicam 15 mg tablet 11/30 completed Not Available Not Available Not Available spironola ctone 100 mg tablet active Not Available Not Available No t Available metformin 850 mg tablet take 1 tablet by oral route 2 times every day with morning and evening meals 11/30 completed Prescrib ed Elsewher e: Yes Loca tion: [facility] M odify By: mel Ward ncounter DateTime : 04/27/20 10:30:00 AM Not Available Not Available Not Available Synthroid 175 mcg tablet TAKE 1 TABLET BY MOUTH ONCE DAILY BEFORE BREAKFAS T active Not Available Not Available No t Available metformin ER 500 mg tablet,ex tended release 24 hr active Not Available Not Available Not Available spironola ctone 50 mg tablet take 1 tablet by oral route every day 11/30 completed Prescrib ed Elsewher e: Yes Loca tion: [facility] odify By: mel Francis ncounter DateTime : 04/27/20 10:30:00 AM Not Available Not Available Not Available Synthroid 137 mcg tablet take 1 tablet by oral route every day 11/30 completed Prescrib ed Elsewher e: Yes [facility] odify By: mel Ward ncounter DateTime : 04/27/20 10:30:00 AM Not Available Not Available Not Available Vitals Date Recorded Body height Body mass index (BMI) Body weight Systolic blood pressure Diastolic blood pressure Systolic blood pressure Diastolic blood pressure Provider Name and Address Organization Details Last Updated DateTime 1 165.1 cm 42.3 kg/m2 718953. 46 g 148 mm[Hg] 82 mm[Hg] 146 mm[Hg] 80 mm[Hg] [facility] 1 16:48:07 Date Recorded Body height Body mass index (BMI) Body weight Systolic blood pressure Diastolic blood pressure Provider Name and Address Organization Details Last Updated DateTime 12/13/2019 165.1 cm 38.9 kg/m2 468878.6 1 g 133 mm[Hg] 83 mm[Hg] [facility] 0 15:59:08 Date Recorded Body height Body mass index (BMI) Body weight Systolic blood pressure Diastolic blood pressure Provider Name and Address Organization Details Last Updated DateTime 06/18/2022 165.1 cm 42.3 kg/m2 406976.9 g 139 mm[Hg] 84 mm[Hg] Shanna Quispe [facility] 3 15:14:43 Date Recorded Body height Body mass index (BMI) Body weight Systolic blood pressure Diastolic blood pressure Provider Name and Address Organization Details Last Updated DateTime 07/08/2023 165.1 cm 41.3 kg/m2 545580.9 1 g 130 mm[Hg] 82 mm[Hg] Meghan Bearden [facility] 17:21:39 Social History Question Answer Notes LastModified by Organizat ion Details LastModified Time Tobacco Smoking Status Never Smoker Isael Eddie valentin, [facility] 06/18/2022 15:05:27 Do You Have An Advance Directive? No Information not available 11/30/2020 What Is Your Level Of Alcohol Consumption? Occasional Information not available 11/30/2020 How Many Years Have You Consumed Alcohol? 30 Information not available 11/30/2020 Are You Blind Or Do You Have Difficulty Seeing? No Information not available 11/30/2020 What Is Your Level Of Caffeine Consumption? Moderate Information not available 11/30/2020 How Much Tobacco Do You Chew? None Information not available 11/30/2020 In The 14 Days Before Symptom Onset, Have You Had Close Contact With A Laboratory-confir med COVID-19 While That Case Was Ill? No Information not available 11/30/2020 In The 14 Days Before Symptom Onset, Have You Had Close Contact With A Person Who Is Under Investigation For COVID-19 While That Person Was Ill? No Information not available 11/30/2020 Have You Been To An Area Known To Be High Risk For COVID-19? No Information not available 11/30/2020 Are You Deaf Or Do You Have Serious Difficulty Hearing? No Information not available 11/30/2020 What Type Of Diet Are You Following? REGULAR Information not available 11/30/2020 What Is The Highest Grade Or Level Of School You Have Completed Or The Highest Degree You Have Received? 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 No Information not available 11/30/2020 Have You Ever Been Counseled For Unhealthy Alcohol Use? No [email or web address] Information not available 07/08/2023 Do You Use Protection During Sex? No Information not available 11/30/2020 Do You Use Your Seat Belt Or Car Seat Routinely? Yes Information not available 11/30/2020 Do You Have Smoke And Carbon Monoxide Detectors In Your Home? Yes Information not available 11/30/2020 How Much Tobacco Do You Smoke? No Information not available 11/30/2020 Do You Feel Stressed (tense, Restless, Nervous, Or Anxious, Or Unable To Sleep At Night)? [id number] Information not available 11/30/2020 Do You Use Any Illicit Or Recreational Drugs? No Information not available 11/30/2020 Do You Use Sunscreen Routinely? Yes Information not available 11/30/2020 Has Tobacco Cessation Counseling Been Provided? No [email or web address] Information not available 07/08/2023 Have You Used IV Drugs? No Information not available 11/30/2020 Do You Or Have You Ever Used Any Other Forms Of Tobacco Or Nicotine? No [email or web address] Information not available 07/08/2023 Sex: Unknown Functional Status Question Answer Note LastModified by Organizat ion Details LastModified Time Do you have difficulty walking or climbing stairs? No Information not available 06/18/2022 Are you able to walk? YESWOREST Information not available 11/30/2020 Are you able to care for yourself? Yes Information not available 06/18/2022 Do you have difficulty dressing or bathing? No Information not available 06/18/2022 What is your exercise level? Occasional Information not available 11/30/2020 Mental Status None recorded. Family History Relationship Description Onset Age of this Age Resolved Age Notes LastModified by Organization Details LastModified Time Mother Hypertensive disorder Not available 2020 13:02:16 Mother Anemia Not available 11/29/2020 13:02:25 Mother Hyperlipidem ia [email or web address] Not available 2023 16:50:45 Mother Malignant neoplasm of skin [email or web address] Not available 2023 16:50:45 Brother Carcinoma of prostate Not available 2023 16:50:45 Maternal Aunt Malignant tumor of breast [email or web address] Not available 07/08 18:36:53 Unspecified Relation Malignant tumor of breast cousin [email or web address] Not available 07/08 18:36:53 Maternal Uncle Malignant tumor of colon 60 [email or web address] Not available 07/08 18:37:11 Father Malignant neoplasm of skin [email or web address] Not available 07/08 18:37:22 Maternal Grandfather Heart disease [email or web address] Not available 07/08 18:37:41 Maternal Grandmother Diabetes mellitus Not available 07/08 18:37:50 Medical History Condition Response Allergies (Food, seasonal, environmental ) Y Other Y Drug/Latex Allergies/Reactions Y Breast Cancer N Blood Transfusion N Lung Disease N Dermatologic Disorders Y Defects or Inherited Disease N Breast Problem N Gestational Diabetes N Hematologic disorders N Anesthesia Complications N History of STI N Deep Vein Thrombosis N Polycystic ovary syndrome Y Anxiety Disorder N Autoimmune disease N Arthritis N Polyps N Infertility Y History of abnormal pap N Acid Reflux (GERD) N Cancer N Varicosities N Stroke N Neurologic/Epilepsy N Endometriosis N High Cholesterol N Headaches N Fibromyalgia N Kidney Disease N Heart Problems N Thyroid Problems Y Kidney or Bladder Problems N GI Problems N Eating Disorder N Anemia N Art (IVF or FET) N Psychiatric Illness N Ovarian Cancer N Diabetes N Pulmonary (TB, Asthma) N Hepatitis/Liver Disease N No Past Medical History N Eczema N Urinary Tract Infection N Abuse/Domestic Violence N Asthma N Trauma/Violence N Depression/ depression N Heart Disease N Pre-Eclampsia N Hypertension N Osteoporosis N Thrombophilias N Gynecological History Statement/Question Response Abnormal Pap N Date of Last Mammogram 03/02/2020 Date of LMP 01/01/2022 On BCP's at Conception? N N Was last menstrual period normal N STIs/STDs N HPV Vaccine Y Duration of Flow (days) 5 Current Control Method Menopause Date of Last Colonoscopy 10/31/2018 Frequency of Cycle (Q days) 40 Sexually Active? Y Date of DEXA bone scan Age of first menstrual cycle 10 Date of Last Pap Smear 12/01/2020 Sexual Problems? N LMP Definite 10/31/2018 N Obstetrics History GPAL:G 0 P 0 0 0 0 Type Value Living 0 Total 0 Past Encounters Encounter ID Performer Location Encounter Start Date Encounter Closed Date Diagnosis/Indication Diagnosis SNOMED-CT Code Diagnosis ICD10 Code Diagnosis Note [id number] Misha Frye MD [place] [address],[place] [address] 12/13/2019 15:22:10 12/13/2019 17:40:40 Cyst of ovary 07998118 N83.209 This patient leonard 49-year-ol d female who presents for follow-up on ovarian cyst. She had a follow-up ultrasound . The previously seen cyst has resolved. There is a new small simple cyst on the opposite side. We discussed these findings.W e agreed to discontinu e observatio n of any of theovarian findings.N o follow-up is required for this issue. [id number] Mckayla Dixon [place] [address],[place] [address] 12/13/2019 15:28:00 12/13/2019 16:22:08 Cyst of right ovary [id number] 5003939 N83.291 [id number] Misha Frye MD [place] [address],[place] [address] 11/30/2020 16:36:29 11/30/2020 17:07:32 Gynecologic examination 12180817 Z01.419 This patient is here for her annual exam. A thorough history was taken. A physical exam was performed. Age appropriat e routine health screening was ordered, performed, and discussed. Recommende d testing was ordered. She was asked to follow up in one year. She will be informed of any test results. Mammogram - [done ] Colonoscop y - [ done] Bone Density - [ not applicable ] Cholestero l - [to have with her PMD next month ] Pap - today [id number] BRAVO Pineda [place] [address],[place] [address] 06/18/2022 15:05:09 06/18/2022 15:58:40 Gynecologic examination [id number] Z01.419 Take Calcium with Vitamin D 12-1500mg daily. Do monthly self breast exams. It is advised to get annual flu shot in the fall and she could obtain at [facility] or [facility] take care clinic. If you haven't received the Tdap vaccine in the last 10 years you should obtain one as well. Have mammogram yearly, bone density every 2-3 years and colonoscop y every 5-10 years depending on findings and history. Engage in daily exercise of low impact aerobic exercise 45-60 minutes 4-5 times weekly. Avoid tobacco and illicit drugs as well as using moderation with alcohol intake less than 1-2 8 oz beverages daily. This lifestyle behavior pattern will lead to less health conditions and longer life span. If BMI greater than 25 weight watchers or dietary consult advised. Questions have been answered. Patient appears to understand instructio ns, but if you have any further questions call or respond to this email Luma carrionusal. LMP 12/2020No hx of abnormal papsLast pap 12/01/2020 NILM, HPV (-)Next pap due next yearSTI testing declinedUT D with mammogramU TD with colonscopy UTD with PCP for routine labsRTC in 1 year or sooner if needed [id number] BRAVO Pineda [place] [address] [address] 07/08/2023 16:50:38 07/09/2023 09:58:51 Gynecologic examination [id number] Z01.419 Luma carrionusalpap updateddec lined STI screeningm ammogram order givencolon oscopy UTDroutine labs UTD/PCPRTC in 1 yr or sooner if needed Take Calcium with Vitamin D daily. Do monthly self breast exams. It is advised to get annual flu shot in the fall and she could obtain at [facility] or [facility] take care clinic. If you haven't received the Tdap vaccine in the last 10 years you should obtain one as well. Have mammogram yearly, bone density every 2-3 years and colonoscop y every 5-10 years depending on findings and history. Engage in daily exercise of low impact aerobic exercise 45-60 minutes 4-5 times weekly. Avoid tobacco and illicit drugs. This lifestyle behavior pattern will lead to less health conditions and longer life span. If BMI greater than 25 dietary consult advised. Questions have been answered. Patient appears to understand instructio ns, but if you have any further questions call or respond to this email Screening for malignant neoplasm of breast [id number] Z12.39 Health Concerns Section Related Observation LastModified by Organization Detai ls LastModified Time None Recorded Concern Status LastModified by Organization Details LastModified Time None Recorded Advance Directives Directive N: Payers Encounter Date Sequence Insurance Name Policy Number Policy [employer] Covered Member ID [employer] Member ID Guarantor Name 12/13/2019 1 [place] [id number] Malinda A Hema [id number] 92 Malinda Garrido 12/13/2019 1 [place] [id number] Malinda A Hema [id number] Malinda Hema 11/30/2020 1 [place] [id number] Malinda A Hema [id number] 92 Malinda Hema 06/18/2022 1 [place] [id number] Malinda A Hema [id number] 92 Malinda Hema 07/08/2023 1 [place] [id number] Malinda A Hema [id number] 92 Malinda [facility] Notes Date Note Type Note Provider Name and Address Organization Details Recorded Time 0 text/html This patient is a 49-year-old female who presents for follow-up on ovarian cyst. She had a follow-up ultrasound. The previously seen cyst has resolved. There is a new small simple cyst on the opposite side. We discussed these findings. We agreed to discontinue observation of any of the ovarian findings. No follow-up is required for this issue. Misha Frye MD [address], [place], [address], [facility] 12/13/2019 16:46:49 1 text/html Annual GYNReported bypatient.History:no gynecologic complaints Menstrual cycle:Normal menses Urinary symptoms:No hematuria; No incontinence Vulva:No genital lesion Vagina:Normal vaginal discharge Breast:No breast pain; No breast lump; No nipple discharge Sexual complaints:No sexual complaints; No pain during intercourse; Normal libido Menopausal Symptoms:No menopausal symptoms Psychological symptoms:No depression; No anxiety Preventive measures:Encourage self breast examination; Encourage regular exercise Misha Frye MD [address], [place], [address], [facility] 11/30/2020 17:02:26 3 text/html Annual Dental Ceramist Assistant Post-MenopausalReported bypatient.Menopausal Symptoms:no menopausal symptoms; normal vaginal lubrication Vaginal Bleeding:history of menopause having occurred; no history of post menopausal bleeding Urinary Symptoms:no hematuria; no incontinence; no nocturia; no urinary frequency Vulva:no genital lesion; no vulvar atrophy Vagina:normal vaginal discharge; no vaginal atrophy Breast:no breast lump; no nipple discharge; no breast pain Sexual Complaints:no sexual complaints Psychological Symptoms:no depression; no anxiety Preventive Measures:encourage regular mammograms starting age 40; encourage self breast examination; encourage regular exercise; encourage no tobacco use; mammogram performed within the past year; history of recent colonoscopy BRAVO Pineda [address], [place], [address], [facility] 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 Post-MenopausalReported bypatient.Menopausal Symptoms:no menopausal symptoms; normal vaginal lubrication Vaginal Bleeding:history of menopause having occurred; no history of post menopausal bleeding Urinary Symptoms:no hematuria; no incontinence; no nocturia; no urinary frequency Vulva:no genital lesion; no vulvar atrophy Vagina:normal vaginal discharge; no vaginal atrophy Breast:no breast lump; no nipple discharge; no breast pain Sexual Complaints:no sexual complaints Psychological Symptoms:no depression; no anxiety Preventive Measures:encourage regular mammograms starting age 40; encourage self breast examination; encourage regular exercise; encourage no tobacco use; mammogram performed within the past year; history of recent colonoscopyNotes:no h/o abnormal papslast pap 11/2020 - normalmammogram scheduledcolonoscopy UTD BRAVO Pineda [address], [place], [address], [facility] 07/09/2023 09:44:58 OBGyn Episode No OBEpisode recorded.
--- OUTSIDE RECORDS SUMMARY | 2024-07-08 00:39 | XMS_ITS | Patient Health Summary ---
Author Organization [facility] Address [address] [place] [address] Care Team Providers Care Data Processing Control Clerk Name Role Phone Sandra Frye MD Unavailable Keyla Borrego MD Unavailable [phone] Pcp, Farhan Grant Im-Fm Primary Care Provider Unavailable Note from [facility],non-owned Affiliates and Associated Physician Practices is amultiple site organization consisting of ambulatory clinics and hospital sitesin [place], [place], [place] and [place]. This disclosure is being madepursuant to the Care Everywhere program and may not contain all information available regarding this patient. Last updated 18.[facility] Allergies * Amoxicillin(Rash) -Low Criticality * Penicillins Medications * Be aware that medications may not be up to date on this document. Alwaysverify current medications with the patient. * multivitamin daily (THERAGRAN) tablet Take 1 (one) tablet by mouth daily with food * Cholecalciferol (VITAMIN D) 2000 UNITS CAPS capsule Take 1 (one) capsule by mouth 2 times daily * triamcinolone (NASACORT AQ) 55 MCG/ACT nasal inhaler(Started 04/21/2014) USE 2 SPRAYS IN EACH NOSTRIL DAILY 6 refills left * Synthroid 175 MCG tablet(Started 04/21/2023) TAKE 1 TABLET BY MOUTH ONCE DAILY BEFORE BREAKFAST * metFORMIN ER 24hr (Glucophage XR) 500 MG tablet(Started 04/28/2023) TAKE 2 TABLETS ONCE DAILY * spironolactone (Aldactone) 100 MG tablet(Started 06/10/2024) Take 1 (one) tablet by mouth once daily Ended Medications* spironolactone (Aldactone) 100 MG tablet(Started 01/31/2023) (Discontinued) Take 1 (one) tablet by mouth once daily 3 refills by 01/31/2024 Active Problems Problem Noted Date Diagnosed Date Primary hypertension 08/19/2022 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 (FLUBLOCK QUADRIVALENT; 18Y+) (RIV4)(Given 03/10/2020) Social History Tobacco Use Types Packs/Day Years [...] Mass Index 40.85 08/19/2022 3:15 PM CDT Procedures * VT DESTRUCT BENIGN LESION, 1-14(Performed 01/31/2023) Performed for Seborrheic keratosis, inflamed * HEMOGLOBIN A1C - POINT OF CARE (AMB)(Performed 08/19/2022) Performed for PCOS (polycystic ovarian syndrome) * TSH(Performed 05/22/2022) Performed for Hypothyroidism, unspecified type * INSULIN FREE + TOTAL(Performed 05/22/2022) Performed for PCOS (polycystic ovarian syndrome) * CBC W AUTO DIFFERENTIAL(Performed 05/22/2022) Performed for Annual physical exam * BASIC METABOLIC PANEL (CALCIUM TOTAL)(Performed 05/22/2022) Performed for Annual physical exam * LIPID PROFILE(Performed 05/22/2022) Performed for Hyperlipidemia, unspecified hyperlipidemia type * COLOGUARD TEST(Performed 03/07/2022) Performed for Colon cancer screening * HEMOGLOBIN A1C - POINT OF CARE (AMB)(Performed 02/18/2022) Performed for Screening for diabetes mellitus * VT DESTRUCT BENIGN LESION, 1-14(Performed 02/05/2022) Performed for Verruca * MAMMO BILAT SCREENING(Performed 04/06/2021) Performed for Encounter for screening for malignant neoplasm of breast, unspecified screening modality * LIPID PROFILE W TCHOL/HDL(Performed 02/09/2021) Performed for Annual physical exam, PCOS (polycystic ovarian syndrome) * BASIC METABOLIC PANEL (CALCIUM TOTAL)(Performed 02/09/2021) Performed for Annual physical exam * CBC W AUTO DIFFERENTIAL(Performed 02/09/2021) Performed for Annual physical exam * REF LAB-SPECIMEN STATUS REPORT(Performed 02/09/2021) * T3 FREE(Performed 02/09/2021) Performed for Annual physical exam, Hypothyroidism, unspecified type * T4 FREE(Performed 02/09/2021) Performed for Annual physical exam, Hypothyroidism, unspecified type * TSH(Performed 02/09/2021) Performed for Annual physical exam, Hypothyroidism, unspecified type * HEMOGLOBIN A1C - POINT OF CARE (AMB)(Performed 01/29/2021) Performed for Obesity due to excess calories, unspecified classification, unspecified whether serious comorbidity present * TSH(Performed 09/13/2020) Performed for Hypothyroidism, unspecified type * TSH(Performed 05/23/2020) Performed for Hypothyroidism, unspecified type * MAMMOGRAPHY ORDER(Performed 04/25/2020) * TSH(Performed 02/23/2020) Performed for Annual physical exam, Hypothyroidism, unspecified type, Morbid obesity (HCC) * LIPID PROFILE W TCHOL/HDL(Performed 02/23/2020) Performed for Annual physical exam, Morbid obesity (HCC), PCOS (polycystic ovarian syndrome) * HEMOGLOBIN A1C(Performed 02/23/2020) Performed for Annual physical exam, Morbid obesity (HCC), PCOS (polycystic ovarian syndrome) * BASIC METABOLIC PANEL (CALCIUM TOTAL)(Performed 02/23/2020) Performed for Annual physical exam * CBC W AUTO DIFFERENTIAL(Performed 02/23/2020) Performed for Annual physical exam * INSULIN FREE + TOTAL(Performed 02/23/2020) Performed for Annual physical exam, Morbid obesity (HCC), PCOS (polycystic ovarian syndrome) * VITAMIN D 25-HYDROXY(Performed 04/27/2019) Performed for Hypercalcemia * CBC W AUTO DIFFERENTIAL(Performed 04/27/2019) Performed for Leukocytosis, unspecified type * MAMMOGRAPHY ORDER(Performed 03/05/2019) * TSH(Performed 01/26/2019) Performed for Annual physical exam, Hypothyroidism, unspecified type * HEMOGLOBIN A1C(Performed 01/26/2019) Performed for Annual physical exam, Morbid obesity (HCC) * LIPID PROFILE W TCHOL/HDL(Performed 01/26/2019) Performed for Annual physical exam, Morbid obesity (HCC) * COMPREHENSIVE METABOLIC PANEL(Performed 01/26/2019) Performed for Annual physical exam * CBC W AUTO DIFFERENTIAL(Performed 01/26/2019) Performed for Annual physical exam * MICROALB/CREAT RATIO URINE RANDOM PANEL(Performed 01/26/2019) Performed for Annual physical exam * INSULIN LEVEL FASTING(Performed 02/11/2018) * LIPID PROFILE(Performed 02/11/2018) Performed for Morbid obesity, unspecified obesity type (HCC) * TSH(Performed 02/11/2018) Performed for Hypothyroidism, unspecified type * COMPREHENSIVE METABOLIC PANEL(Performed 02/11/2018) Performed for Annual physical exam * CBC W AUTO DIFFERENTIAL(Performed 02/11/2018) Performed for Annual physical exam * MAMMOGRAPHY ORDER(Performed 02/06/2018) * US BREAST RIGHT LTD(Performed 02/05/2017) Performed for Abnormal mammogram * MAMMO RIGHT DIAGNOSTIC(Performed 02/05/2017) Performed for Abnormal mammogram * CBC W AUTO DIFFERENTIAL(Performed 01/10/2017) Performed for Leukocytosis, unspecified type * MAMMO CAD DIAGNOSTIC(Performed 01/09/2017) * TSH(Performed 12/11/2016) Performed for Annual physical exam, Hypothyroidism, unspecified type * HEMOGLOBIN A1C(Performed 12/11/2016) Performed for Annual physical exam, Morbid obesity, unspecified obesity type (HCC), Prediabetes * LIPID PROFILE W TCHOL/HDL(Performed 12/11/2016) Performed for Annual physical exam, Morbid obesity, unspecified obesity type (HCC) * COMPREHENSIVE METABOLIC PANEL(Performed 12/11/2016) Performed for Annual physical exam * CBC W AUTO DIFFERENTIAL(Performed 12/11/2016) Performed for Annual physical exam * MICROALB/CREAT RATIO URINE RANDOM PANEL(Performed 12/22/2015) Performed for Elevated BP * COMPREHENSIVE METABOLIC PANEL(Performed 12/22/2015) Performed for Visit for preventive health examination * CBC W AUTO DIFFERENTIAL(Performed 12/22/2015) Performed for Visit for preventive health examination * HEMOGLOBIN A1C(Performed 12/22/2015) Performed for Morbid obesity due to excess calories (HCC) * TSH(Performed 12/22/2015) Performed for Elevated BP * LIPID PROFILE(Performed 12/22/2015) Performed for Elevated BP * VITAMIN D 25-HYDROXY(Performed 12/22/2015) Performed for Visit for preventive health examination * HM MAMMOGRAPHY(Performed 11/29/2015) * BASIC METABOLIC PANEL (CALCIUM TOTAL)(Performed 07/17/2015) Performed for PCOS (polycystic ovarian syndrome) * HEMOGLOBIN A1C(Performed 07/17/2015) Performed for Elevated blood pressure (not hypertension), PCOS (polycystic ovarian syndrome) * TSH(Performed 04/06/2015) Performed for Unspecified hypothyroidism * INSULIN LEVEL(Performed 11/11/2014) Performed for PCOS (polycystic ovarian syndrome) * HEMOGLOBIN A1C(Performed 11/11/2014) Performed for Obesity, PCOS (polycystic ovarian syndrome) * TSH(Performed 11/11/2014) Performed for Routine general medical examination at a health care facility, Unspecified hypothyroidism, Obesity * LIPID PROFILE W TCHOL/HDL(Performed 11/11/2014) Performed for Routine general medical examination at a health care facility, Obesity * COMPREHENSIVE METABOLIC PANEL(Performed 11/11/2014) Performed for Routine general medical examination at a health care facility * CBC W AUTO DIFFERENTIAL(Performed 11/11/2014) Performed for Routine general medical examination at a health care facility * MAMMOGRAPHY ORDER(Performed 11/09/2014) * NATALIE BLOOD SCREEN REFLEX CASCADE(Performed 12/01/2013) Performed for Encounter for long-term (current) use of other medications * TSH(Performed 12/01/2013) Performed for Unspecified hypothyroidism * HEMOGLOBIN A1C(Performed 12/01/2013) Performed for Obesity, unspecified * LIPID PROFILE W TCHOL/HDL(Performed 12/01/2013) Performed for Routine general medical examination at a health care facility * COMPREHENSIVE METABOLIC PANEL(Performed 12/01/2013) Performed for Routine general medical examination at a health care facility, Encounter for long-term (current) use of other medications * CBC W AUTO DIFFERENTIAL(Performed 12/01/2013) Performed for Routine general medical examination at a health care facility, Encounter for long-term (current) use of other medications * XR HIP LEFT 2VW OR MORE(Performed 12/01/2013) Performed for Left hip pain * MAMMO LEFT DIAGNOSTIC(Performed 07/12/2013) * LAB RESULTS ORDER(Performed 03/09/2013) * STREP A SCREEN DIRECT(Performed 03/09/2013) * US BREAST LEFT LTD(Performed 11/23/2012) * LAB RESULTS ORDER(Performed 11/10/2012) * LAB RESULTS ORDER(Performed 09/16/2012) * ERCP(Performed 04/25/2008) * US ABDOMEN LIMITED(Performed 04/24/2008) * CT ABDOMEN PELVIS WO CONTRAST(Performed 07/24/2007) * IMAGING/RADIOLOGY/XRAY RESULTS ORDER(Performed 05/17/2004) * XR KNEE RIGHT 4VW OR MORE(Performed 03/21/2003) * CYTOLOGY SMEAR PAP THIN PREP(Performed 07/10/1998) Results * VT DESTRUCT BENIGN LESION, 1-14 (01/31/2023 3:35 PM CDT) Keyla Brandt MD - 01/31/2023 3:35 PM CDT Isac Meadows MD 01/31/2023 3:35 PM Diagnosis and treatment options discussed. Cryotherapy (Liquid Nitrogen) to 1 lesion for 10 seconds. Number of cycles: 1. Wound care reviewed. Keyla Borrego MD PROCEDURE/JESSENIA R SURGICAL ORDERABLES * HEMOGLOBIN A1C - POINT OF CARE (AMB) (08/19/2022 4:22 PM CDT) Only the most recent of3 resultswithin the time period is included. [facility] Hemoglobin A1c POCT 5.5 % [facility] [address] Expiration Date 04/30/2024 [facility] [address] Lot # [id number] [facility] [address] QC Verified Yes Yes [facility] [address] Blood BLOOD SPECIMEN / Unknown 08/19/2022 4:22 PM CDT Odilia Domínguez MD LAB - POINT OF CARE ORDERABLES [facility] [address] [place], [place] [address] [phone] * (ABNORMAL) INSULIN FREE + TOTAL (05/22/2022 9:11 AM COMPOSITION PROFESSOR) Only the most recent of2 resultswithin the time period is included. [facility] Insulin Free 24(H) uU/mL [facility] ACCOUNT BILL Comment: Reference Range: Pubertal Children and Adults (fasting): 0 - 17 Insulin Total 24 uU/mL [facility] ACCOUNT BILL Comment: Non-Diabetic: In the absence of insulin-binding antibodies, the free and total insulin assays are equivalent. However, this assay is intended for use in diabetics with insulin autoantibody present. Measurement is performed on acid-treated samples and, therefore, the sensitivity and absolute values by this method may differ from our direct insulin ICMA. Insulin Dependent Diabetic Patients: Free Insulin levels vary depending on the capacity and affinity of circulating insulin-binding antibodies and the dose of insulin given to the patient. Total insulin levels represent free insulin and antibody bound insulin fractions. This test was developed and its performance characteristics determined by [facility]. It has not been cleared or approved by the Food and Drug Administration. FASTING Blood BLOOD SPECIMEN / Unknown 05/22/2022 9:11 AM COMPOSITION PROFESSOR 05/22/2022 Narrative Resulting Agency Comment Lab Testing performed at: [facility] [address] [place] [address] [phone] Connie Daugherty CINDER MAN-WASTEWATER TECHNICIAN LAB - CHEMISTR Y ORDERABLES [facility] ACCOUNT BILL [address] [place] [address] * CBC WITH DIFFERENTIAL (05/22/2022 9:11 AM COMPOSITION PROFESSOR) Only the most recent of11 resultswithin the time period is included. WBC 9.1 3.4 - 10.8 x10E3/uL [facility] ACCOUNT BILL RBC 4.19 3.77 - 5.28 x10E6/uL [facility] ACCOUNT BILL Hemoglobin 12.7 11.1 - 15.9 g/dL [facility] ACCOUNT BILL Hematocrit 37.7 34.0 - 46.6 % [facility] ACCOUNT BILL MCV 90 79 - 97 fL [facility] ACCOUNT BILL MCH 30.3 26.6 - 33.0 pg [facility] ACCOUNT BILL MCHC 33.7 31.5 - 35.7 g/dL [facility] ACCOUNT BILL RDW 13.6 11.7 - 15.4 % [facility] ACCOUNT BILL Platelet Count 329 150 - 450 x10E3/uL [facility] ACCOUNT BILL Granulocytes % 62 Not Estab. % [facility] ACCOUNT BILL Lymphocytes % 29 Not Estab. % [facility] ACCOUNT BILL Monocytes % 5 Not Estab. % [facility] ACCOUNT BILL Eosinophils % 3 Not Estab. % [facility] ACCOUNT BILL Basophils % 1 Not Estab. % [facility] ACCOUNT BILL Immature Cells NOT AVAILABLE [facility] ACCOUNT BILL Comment:Result cannot be obt ained for this observation. Granulocytes Absolute 5.7 1.4 - 7.0 x10E3/uL [facility] ACCOUNT BILL Lymphocytes Absolute 2.7 0.7 - 3.1 x10E3/uL [facility] ACCOUNT BILL Monocytes Absolute 0.5 0.1 - 0.9 x10E3/uL [facility] ACCOUNT BILL Eosinophils Absolute 0.3 0.0 - 0.4 x10E3/uL [facility] ACCOUNT BILL Basophils Absolute 0.1 0.0 - 0.2 x10E3/uL [facility] ACCOUNT BILL Immature Granulocytes 0 Not Estab. % [facility] ACCOUNT BILL Immature Granulocytes Absolute 0.0 0.0 - 0.1 x10E3/uL [facility] ACCOUNT BILL nRBC NOT AVAILABLE [facility] ACCOUNT BILL Comment:Result cannot be obt ained for this observation. Comment Hematology NOT AVAILABLE [facility] ACCOUNT BILL Comment: FASTING Result cannot be obtained for this observation. Blood BLOOD SPECIMEN / Unknown 05/22/2022 9:11 AM COMPOSITION PROFESSOR 05/22/2022 Narrative Resulting Agency Comment Lab Testing performed at: [facility] [address] [phone] Connie Daugherty CINDER MAN-WASTEWATER TECHNICIAN LAB - HEMATOLO GY ORDERABLES Performing Organization Address City/[facility] Co de Phone Number [facility] ACCOUNT BILL [address] [place] [address] * (ABNORMAL) BASIC METABOLIC PANEL (CALCIUM TOTAL) (05/22/2022 9:11 AM COMPOSITION PROFESSOR) Only the most recent of4 resultswithin the time period is included. Glucose 106(H) 70 - 99 mg/dL [facility] ACCOUNT BILL BUN 13 6 - 24 mg/dL [facility] ACCOUNT BILL Creatinine 0.93 0.57 - 1.00 mg/dL [facility] ACCOUNT BILL eGFR by CKD-EPI 73 >59 mL/min/1.7 3 [facility] ACCOUNT BILL BUN/Creatinine Ratio 14 9 - 23 [facility] ACCOUNT BILL Sodium 141 134 - 144 mmol/L [facility] ACCOUNT BILL Potassium 4.1 3.5 - 5.2 mmol/L [facility] ACCOUNT BILL Chloride 105 96 - 106 mmol/L [facility] ACCOUNT BILL CO2 20 20 - 29 mmol/L [facility] ACCOUNT BILL Calcium 9.9 8.7 - 10.2 mg/dL [facility] ACCOUNT BILL Comment:FASTING Blood BLOOD SPECIMEN / Unknown 05/22/2022 9:11 AM COMPOSITION PROFESSOR 05/22/2022 Narrative Resulting Agency Comment Lab Testing performed at: [facility] [address] [phone] Connie Daugherty CINDER MAN-WASTEWATER TECHNICIAN LAB - CHEMISTR Y ORDERABLES Performing Organization Address City/[facility]/ZIP Co de Phone Number [facility] ACCOUNT BILL [address] [place] [address] * TSH (05/22/2022 9:11 AM COMPOSITION PROFESSOR) Only the most recent of12 resultswithin the time period is included. TSH 0.610 0.450 - 4.500 uIU/mL [facility] ACCOUNT BILL Comment:FASTING Blood BLOOD SPECIMEN / Unknown 05/22/2022 9:11 AM COMPOSITION PROFESSOR 05/22/2022 Narrative Resulting Agency Comment [facility] Testing performed at: [facility] [address] [phone] Connie Daugherty CINDER MAN-WASTEWATER TECHNICIAN LAB - CHEMISTR Y ORDERABLES Performing Organization Address City/[facility]/ZIP Co de Phone Number [facility] ACCOUNT BILL [address] [place] [address] * (ABNORMAL) LIPID PROFILE (05/22/2022 9:11 AM COMPOSITION PROFESSOR) Only the most recent of3 resultswithin the time period is included. Pathologist [facility] Cholesterol 232(H) 100 - 199 mg/dL [facility] [...] BLOOD SPECIMEN / Unknown 05/22/2022 9:11 AM COMPOSITION PROFESSOR 05/22/2022 Narrative Resulting Agency Comment Lab Testing performed at: [facility] [address] [phone] Connie Daugherty CINDER MAN-WASTEWATER TECHNICIAN LAB - CHEMISTR Y ORDERABLES Performing Organization Address City/[facility]/ZIP Co de Phone Number [facility] ACCOUNT BILL [address] [place] [address] * [id number] COLOGUARD TEST *Associate with Z12.11 OR Z12.12 Dx Codes* (03/07/2022 7:48 AM CDT) Pathologist [facility] Cologuard Negative Negative [facility] Comment: NEGATIVE TEST RESULT. A negative [...] screened with both Cologuard and colonoscopy. (Mignon Yin. et al, N Engl J Med 2014;370(14):3305-9026) The normal value (reference range) for this assay is negative. COLOGUARD RE-SCREENING RECOMMENDATION: Periodic colorectal cancer screening is an important part of preventive healthcare for asymptomatic individuals at average risk for colorectal cancer. Following a negative Cologuard result, the [place] Cancer Society and U.S. Multi-Society Task Force screening guidelines recommend a Cologuard re-screening interval of 3 years. References: [place] Cancer Society Guideline for Colorectal Cancer Screening: https://www.cancer.org/cancer/xobwj-pafudi-ivloss/xuktmifht-rhhrgwzpv-pqtslyf/ acs-recommendations.html.; Juice BLISS, Jerrell BUITRAGO, Selam JacksonK, Colorectal Cancer Screening: Recommendations for Physicians and Patients from the U.S. Multi-Society Task Force on Colorectal Cancer Screening , Am J Gastroenterology 2017; 112:9258-6829. TEST DESCRIPTION: Composite algorithmic analysis of stool [...] Schofield et al, N Engl J Med 2014;370(14):7031-4089.) Cologuard may produce a false negative or false positive result (no colorectal cancer or precancerous polyp present at colonoscopy follow up). A negative Cologuard test result does not guarantee the absence of CRC or advanced adenoma (pre-cancer). The current Cologuard screening interval is every 3 years. (Dutch Cancer Society and U.S. Multi-Society Task Force). Cologuard performance data in a 10,000 patient pivotal study using colonoscopy as the reference method can be accessed at the following location: www.[employer]/results. Additional description of the Cologuard test process, warnings and precautions can be found at www.cologuard.com. Stool STOOL SPECIMEN / Unknown 03/07/2022 7:48 AM CDT 03/08/2022 1:19 PM CDT Connie Daugherty CINDER MAN-WASTEWATER TECHNICIAN LAB - CHEMISTR Y ORDERABLES [employer] [address] [place] [address] [employer] [address] [place] [address]. [place] [address] * VT DESTRUCT BENIGN LESION, 1-14 (02/05/2022 11:27 PM CDT) Narrative Keyla Borrego MD - 02/05/2022 11:27 PM CDT Keyla Borrego MD 02/05/2022 11:29 PM Liquid nitrogen was applied for 10-12 seconds to the skin lesion and the expected blistering or scabbing reaction explained. Do not pick at the area. Patient reminded to expect hypopigmented scars from the procedure. Return if lesion fails to fully resolve. Keyla Borrego MD PROCEDURE/JESSENIA R SURGICAL ORDERABLES * MAMMO BILAT SCREENING (04/06/2021) Anatomical Region Laterality Modality Breast Bilateral Mammography 04/06/2021 Odilia Domínguez MD MAMMO ORDERABLES * (ABNORMAL) LIPID PROFILE W TCHOL/HDL (02/09/2021 9:59 AM CDT) Only the most recent of6 resultswithin the time period is included. Cholesterol 239(H) 100 - 199 mg/dL [facility] ACCOUNT BILL Triglycerides 93 0 - 149 mg/dL [facility] ACCOUNT BILL HDL Cholesterol 84 >39 mg/dL [facility] ACCOUNT BILL VLDL Calculated 16 5 - 40 mg/dL [facility] ACCOUNT BILL LDL Calculated 139(H) 0 - 99 mg/dL [facility] ACCOUNT BILL Comment NOT NEEDED [facility] ACCOUNT BILL Comment:Ancillary determined the test is not needed. Cholesterol/HDL Ratio 2.8 0.0 - 4.4 ratio [facility] ACCOUNT BILL Comment: T. Chol/HDL Ratio Men Women 1/2 Avg.Risk 3.4 3.3 Avg.Risk 5.0 4.4 2X Avg.Risk 9.6 7.1 3X Avg.Risk 23.4 11.0 FASTING Blood BLOOD SPECIMEN / Unknown 02/09/2021 9:59 AM CDT 02/09/2021 Narrative Resulting Agency Comment Lab Testing performed at: [facility] [address] [phone] Odilia Domínguez MD LAB - CHEMISTRY LUDWIN HERNANDEZ [facility] Organization Address City/State/ZIP Co de Phone Number [facility] ACCOUNT BILL [address] [place] [address] * REF LAB-SPECIMEN STATUS REPORT (02/09/2021 9:58 AM CDT) Specimen Status Report NOT NEEDED [facility] ACCOUNT BILL Comment: During transportation to a testing facility, a commercial carrier delay compromised this patient's sample(s). A [facility] customer experience strategist will be contacting your office with additional information and instructions for sample recollection. TEST: [id number] Free and Total Insulin CONTACTED SIA Stephenson AT YOUR FACILITY ON 02/20/21 FASTING Ancillary determined the test is not needed. 02/09/2021 9:58 AM CDT 02/09/2021 Narrative Resulting Agency Comment Lab Testing performed at: [facility] [address] [phone] Odilia Domínguez MD LAB - CHEMISTRY LUDWIN HERNANDEZ Performing Organization Address [facility] Co de Phone Number [facility] ACCOUNT BILL [address] [place] [address] * T3 FREE (02/09/2021 9:58 AM CDT) T3 Free 3.0 2.0 - 4.4 pg/mL [facility] ACCOUNT BILL Comment:FASTING Blood BLOOD SPECIMEN / Unknown 02/09/2021 9:58 AM CDT 02/09/2021 Narrative Resulting Agency Comment [facility] performed [facility]: [facility] [place] [address] [phone] Odilia Domínguez MD LAB - CHEMISTRY LUDWIN HERNANDEZ Performing Organization Address [facility] de Phone Number [facility] ACCOUNT BILL [address] [place] [address] * (ABNORMAL) T4 FREE (02/09/2021 9:58 AM CDT) T4 Free 1.99(H) 0.82 - 1.77 ng/dL [facility] ACCOUNT BILL Comment:FASTING Blood BLOOD SPECIMEN / Unknown 02/09/2021 9:58 AM CDT 02/09/2021 Narrative Resulting Agency Comment Lab Testing performed at: [facility] [address] [phone] Odilia Domínguez MD LAB - CHEMISTRY LUDWIN HERNANDEZ Performing Organization Address City/[facility]/ZIP Co de Phone Number [facility] ACCOUNT BILL [address] [place] [address] * MAMMOGRAPHY ORDER (04/25/2020) Only the most recent of4 resultswithin the time period is included. Anatomical Region Laterality Modality Mammography Provider Unknown MAMMO ORDERABLES * HEMOGLOBIN A1C (02/23/2020 3:41 PM CDT) Only the most recent of7 resultswithin the time period is included. Hemoglobin A1c 5.4 4.8 - 5.6 % [facility] INSURANCE BILL Comment: . Prediabetes: 5.7 - 6.4 Diabetes: >6.4 Glycemic control for adults with diabetes: <7.0 Blood BLOOD SPECIMEN / Unknown 02/23/2020 3:41 PM CDT 02/23/2020 Narrative Resulting Agency Comment Lab Testing performed at: [facility] [address] [phone] Odilia Domínguez MD LAB - CHEMISTRY LUDWIN HERNANDEZ [facility] [facility] Organization Address City/State/ZIP Co de Phone Number [facility] INSURANCE BILL [address] [place] [address] * VITAMIN D 25-HYDROXY (04/27/2019 11:27 AM COMPOSITION PROFESSOR) Only the most recent of2 resultswithin the time period is included. Vitamin D, 25 Hydroxy 38.6 30.0 - 100.0 ng/mL [facility] INSURANCE BILL Comment: Vitamin D deficiency has been defined by the Smiley of Medicine and an Endocrine Society practice guideline as a level of serum 25-OH vitamin D less than 20 ng/mL (1,2). The Endocrine Society went on to further define vitamin D insufficiency as a level between 21 and 29 ng/mL (2). 1. IOM (Smiley of Medicine). 2010. Dietary reference intakes for calcium and D. [place]: The National Academies Press. 2. Severo SANDOVAL, Jose Daniel GARNER, Mireille KAMARA, et al. Evaluation, treatment, and prevention of vitamin D deficiency: an Endocrine Society clinical practice guideline. JCEM. 2010; 96(7):1911-30. FASTING Blood BLOOD SPECIMEN / Unknown 04/27/2019 11:27 AM COMPOSITION PROFESSOR 04/27/2019 Narrative Resulting Agency Comment Lab Testing performed at: [facility] [address] [phone] Connie Daugherty CINDER MAN-WASTEWATER TECHNICIAN LAB - CHEMISTR Y ORDERABLES [facility] INSURANCE BILL [address] [place] [address] * (ABNORMAL) COMPREHENSIVE METABOLIC PANEL (01/26/2019 4:13 PM CDT) Only the most recent of6 resultswithin the time period is included. Glucose 101 74 - 106 mg/dL [facility] ACCOUNT BILL BUN 15 9.8 - 20.1 mg/dL [facility] ACCOUNT BILL Creatinine 0.77 0.55 - 1.02 mg/dL [facility] ACCOUNT BILL eGFR by MDRD >60 >60 mL/min/1.7 3m2 [facility] ACCOUNT BILL eGFR by MDRD >60 >60 mL/min/1.7 3m2 [facility] ACCOUNT BILL Sodium 136 136 - 145 mmol/L [facility] ACCOUNT BILL Potassium 4.2 3.5 - 5.1 mmol/L [facility] ACCOUNT BILL Chloride 100 98 - 107 mmol/L [facility] ACCOUNT BILL CO2 24 23 - 31 mmol/L [facility] ACCOUNT BILL Calcium 10.7(H) 8.4 - 10.2 mg/dL [facility] ACCOUNT BILL Protein Total 7.6 6.4 - 8.3 gm/dL [facility] ACCOUNT BILL Albumin 4.6 3.5 - 5.2 gm/dL [facility] ACCOUNT BILL Bilirubin Total 0.9 0.2 - 1.0 mg/dL [facility] ACCOUNT BILL Alkaline Phosphatase 115 40 - 150 U/L [facility] ACCOUNT BILL AST 33 5 - 34 U/L [facility] ACCOUNT BILL ALT 45 13 - 61 U/L [facility] ACCOUNT BILL Blood BLOOD SPECIMEN / Unknown 01/26/2019 4:13 PM CDT 01/26/2019 Narrative Resulting Agency Comment Lab Testing performed at: [facility] [address] [facility] [phone] Odilia Domínguez MD LAB - CHEMISTRY ORDE RABLES Performing Organization Address City/[facility]/ZIP Co de Phone Number [facility] ACCOUNT BILL [address] [place] [address] * MICROALB/CREAT RATIO URINE RANDOM PANEL (01/26/2019 4:12 PM CDT) Only the most recent of2 resultswithin the time period is included. Creatinine Urine 274.46 mg/dL [facility] ACCOUNT BILL Microalbumin Urine 1.2 mg/dL [facility] ACCOUNT BILL Microalbumin/Crea tinine Ratio 4 <30 mg/g [facility] ACCOUNT BILL Urine URINE SPECIMEN OBTAINED BY CLEAN CATCH PROCEDURE / Unknown 01/26/2019 4:12 PM CDT 01/26/2019 Narrative Resulting Agency Comment Lab Testing performed at: [facility] [address] [facility] [phone] Odilia Domínguez MD LAB - URINE CHEMISTR Y ORDERABLES Performing Organization Address City/[facility] Co de Phone Number [facility] ACCOUNT BILL [address] [place] [address] * INSULIN LEVEL FASTING (02/11/2018 11:18 AM CDT) Insulin Fasting 10.9 2.6 - 24.9 uIU/mL [facility] ACCOUNT BILL Comment:FASTING 02/11/2018 11:1 8 AM CDT 02/11/2018 Narrative Resulting Agency Comment [facility] [address] [phone] Connie Daugherty CINDER MAN-WASTEWATER TECHNICIAN LAB - CHEMISTR Y ORDERABLES Performing Organization Address City/[facility] Co de Phone Number [facility] ACCOUNT BILL [address] [place] [address] * US BREAST RIGHT LTD (02/05/2017) Anatomical Region Laterality Modality Breast Right Ultrasound 02/05/2017 Odilia Domínguez MD US ORDERABLES * MAMMO DIAG DIRECT DIGITAL IMAGE UNIL RIGHT (02/05/2017) Anatomical Region Laterality Modality Breast Right Mammography 02/05/2017 Odilia Domínguez MD MAMMO ORDERABLES * MAMMO CAD DIAGNOSTIC (01/09/2017) Anatomical Region Laterality Modality Breast Mammography Odilia Domínguez MD MAMMO ORDERABLES * HM MAMMOGRAPHY (11/29/2015) Anatomical Region Laterality Modality Other Riri Grewal MD HEALTH MAINTENANCE * INSULIN LEVEL (11/11/2014 9:36 AM CDT) Pathologist [facility] Insulin Fasting 14.3 2.6 - 24.9 uIU/mL [facility] ACCOUNT BILL Blood specimen (specimen) BLOOD SPECIMEN / Unknown 11/11/2014 9:36 AM CDT 11/11/2014 1:05 PM CDT Narrative Resulting Agency Comment [facility] [address] [phone] Odilia Domínguez MD [facility] Organization Address City/State/ZIP Co de Phone Number [facility] ACCOUNT BILL * NATALIE BLOOD SCREEN REFLEX CASCADE (PO REF LAB) (12/01/2013 8:58 AM CDT) NATALIE Direct Negative Negative [facility] ACCOUNT BILL See Below [facility] ACCOUNT BILL Comment: Autoantibody Disease Association Condition Frequency Antinuclear Antibody, SLE, mixed connective Direct (NATALIE-D) tissue diseases dsDNA SLE 40 - 60% Chromatin Drug induced SLE 90% SLE 48 - 97% SSA ([place]) SLE 25 - 35% Sjogren's Syndrome 40 - 70% Lupus 100% SSB ([place]) SLE 10% Sjogren's Syndrome 30% Sm (anti-Daugherty) SLE 15 - 30% SURGICAL INSTRUMENT REPAIR SPECIALIST Mixed Connective Tissue Disease 95% (U1 nRNP, SLE 30 - 50% anti-ribonucleoprotein) Polymyositis and/or Dermatomyositis 20% Scl-70 (antiDNA Scleroderma (diffuse) 20 - 35% topoisomerase) Crest 13% Tasia-1 Polymyositis and/or Dermatomyositis 20 - 40% Centromere B Scleroderma - Crest variant 80% Ribosomal P SLE 10 - 20% BLOOD SPECIMEN / Unknown 12/01/2013 8:58 AM CDT 12/01/2013 1:18 PM CDT Narrative Resulting Agency Comment [facility] [address] [phone] Odilia Domníguez MD LAB - SEROLOGY ORDER CHRIS [facility] ACCOUNT BILL * XR HIP 2+ VW LEFT (12/01/2013 8:50 AM CDT) Anatomical Region Laterality Modality Pelvis, Lower Extremity Radiogra phic Imaging 12/01/2013 9:20 AM CDT Impressions 12/01/2013 9:46 AM CDT Negative. Edited by Jenni Rhodes on 12/01/2013 9:43 AM Narrative 12/01/2013 9:46 AM CDT LEFT HIP, 2 VIEW HISTORY: Pain. No fracture, dislocation or significant joint space narrowing is seen. The sacroiliac joints are normal. Procedure Note David Jha MD - 12/01/2013 LEFT HIP, 2 VIEW HISTORY: Pain. No fracture, dislocation or significant joint space narrowing is seen. The sacroiliac joints are normal. IMPRESSION Negative. Edited by Jenni Rhodes on 12/01/2013 9:43 AM Odilia Domínguez MD DIAGNOSTIC IMAGING O RDERABLES * MAMMO DIAG DIRECT DIGITAL IMAGE UNIL LEFT (07/12/2013) Anatomical Region Laterality Modality Left Other Historical Provider MAMMO ORDERABLES * LAB RESULTS ORDER (03/09/2013) Only the most recent of3 resultswithin the time period is included. Historical Provider LAB - THERAPEUTIC DRUG MONITORING ORDERABLES * STREP A SCREEN DIRECT (03/09/2013) Miscellaneous samples (specimen) ENTIRE THROAT (SURFACE REGION OF NECK) / Unknown Historical Provider LAB - MICROBIOLOG Y ORDERABLES * US BREAST LEFT LTD (11/23/2012) Anatomical Region Laterality Modality Breast Left Other Historical Provider US ORDERABLES * ERCP (04/25/2008) Historical Provider GI PROCEDURE ORDE RABLES * US ABDOMEN LIMITED (04/24/2008) Anatomical Region Laterality Modality Abdomen Other Historical Provider US ORDERABLES * CT ABDOMEN AND PELVIS NON IV CONTRAST (07/24/2007) Anatomical Region Laterality Modality Abdomen, Pelvis Other Historical Provider CT ORDERABLES * IMAGING/RADIOLOGY/XRAY RESULTS ORDER (05/17/2004) Anatomical Region Laterality Modality Other Historical Provider IMAGING * XR KNEE 4+ VW RIGHT (03/21/2003) Anatomical Region Laterality Modality Lower Extremity Other Historical Provider DIAGNOSTIC IMAGIN G ORDERABLES * CYTOLOGY SMEAR PAP THIN PREP (07/10/1998 9:23 AM COMPOSITION PROFESSOR) Result CASE NUMBER [id number] Comment: ORDERING PHYSICIAN RIRI GREWAL SPECIMEN TYPE PAP Smear Date 07/10/1998 Procedure Cervical/Endocervical, 1 Vial for Thin Prep Received Specimen Adequacy Satisfactory for Evaluation Categorization Within Normal Limits Snomed. 07/12/1998 1140 <1> Hooker Off Araseli Allan (ASCP) PAP Footnote The PAP smear is only a screening procedure to aid in the detection of cervical cancer and its precursors. It is not a diagnostic procedure and should not be used as the sole means to detect cervical cancer. Both false negative and false positive results have been experienced. MISCELLANEOUS SAMPLES / Unknown 07/10/1998 9:23 AM COMPOSITION PROFESSOR 07/11/1998 9:23 AM COMPOSITION PROFESSOR Historical Provider LAB - PATHOLOGY/C YTOLOGY ORDERABLES Care Teams Data Processing Control Clerk Relationship Specialty Start Date End Date Pcp, Farhan Grant - PCP - General 12/12/22 Sandra Frye MD [address] [place] [address] [place] [address] Obstetrics and Gynecology 02/18/22 Keyla Borrego MD [address] [facility] [address] [place] [address] Surgeon Dermatology 02/18/22
--- OUTSIDE RECORDS SUMMARY | 2024-07-08 00:39 | XMS_ITS | Encounter Summary ---
Author Organization [facility] Address [address] [place] [address] [place] [address] Care Team Providers Care Clinical Documentation Nurse Name Role Phone Odilia Domínguez MD Primary Care Provider [phone] Riri Grewal MD Unavailable [phone] Sangita Gayle MD Unavailable [phone] Meka Salazar MD Unavailable [phone] Sandra Frye MD Unavailable Keyla Borrego MD Unavailable [phone] Pcp, Farhan Grant [facility] Primary Care Provider Unavailable Encounter Details Date Type Department Care Team (Late st Contact Info) Description 01/13/2014 [facility] EXTERNAL [facility] DEPT Unknown, Provider Social History Tobacco Use Types Packs/Day Years Used Date Smoking Tobacco: Never Smokeless Tobacco: Never Alcohol Use Standard Drinks/Week Comments No 0 (1 standard drink = 0.6 oz pur e alcohol) Sex and Gender Information Value Date Recorded Sex Assigned at Female 01/27/2021 3:50 PM CDT Gender Identity Female 01/27/2021 3:50 PM CDT Sexual Orientation Not on file documented as of this encounter Plan of Treatment Upcoming Encounters Date Type Department Care Team (Late st Contact Info) Description 09/24/2024 2:50 PM CDT Office Visit [facility] - Dermatology [address] [place] [address], [facility] [place] [id number] Keyla Borrego MD [address] [place] [address] documented as of this encounter Visit Diagnoses Not on filedocumented in this encounter Care Teams Clinical Documentation Nurse Relationship Specialty Start Date End Date Odilia Domínguez MD PCP - General Internal Medicine 07/20/13 12/11/22 PcpFarhan - PCP - General 12/12/22 Riri Grewal MD [facility] [address] [place] [address] [address] [place] [address] Obstetrics and Gynecology 02/10/1501/31 Sangita Gayle MD [facility] [address] [place] [address] [address] [place] [address] Internal Medicine 02/10/15 06/12/15 Meka Salazar MD [facility] [address] [place] [address] [address] [place] [address] Dermatology 02/26/16 02/17/22 Sandra Frye MD [facility] [place] [address] Obstetrics and Gynecology 02/18/22 Keyla Borrego MD [address] [place] [id number] Surgeon Dermatology 02/18/22 documented as of this encounter
[2024-07-08 06:44] LABS: Glucose Point of Care 104 mg/dl (65-105)
[2024-07-08] MEDS: LACTATED RINGERS 1,000 ML 30 ML IV CONT ×2 (07:00→09:50)
[2024-07-08] MEDS: ACETAMINOPHEN 500 MG TABLET 1000 MG PO (07:00)
[2024-07-08] MEDS: TRANEXAMIC ACID 1,000MG/ISO100 1,000 MG/100 ML BAG 200 MG IVPB (07:00)
--- NOTE | 2024-07-08 07:04 | P.PNAN_ITS ---
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 Patient Data Age: 53 Gender: F Height: 1.64 m Weight: 102.5 kg Last Vital Signs Temp 36.7 C 06/09/24 12:28 Pulse 81 06/09/24 12:28 Resp 18 06/09/24 12:28 BP 127/83 06/09/24 12:28 Pulse Ox 97 06/09/24 12:28 O2 Del Method Room Air 06/09/24 12:28 Allergies Allergy/AdvReac Type Severity Reaction Status Date / Time amoxicillin Allergy Mild Hives Verified 06/09/24 11:49 Home Medications ?Medication ?Instructions ?Recorded ?Confirmed ?Type cholecalciferol (vitamin D3) 125 125 mcg PO DAILY 06/19/23 06/09/24 History mcg (5,000 unit) capsule multivitamin 1 tablet PO DAILY 06/19/23 06/09/24 History spironolactone 100 mg tablet 100 mg PO DAILY 06/19/23 06/09/24 History metformin 500 mg tablet See Rx Instructions .Route 05/27/24 06/09/24 Rx .COMPLEX #180 tabs acetaminophen 500 mg tablet 1,000 mg PO Q6H PRN pain 06/09/24 06/09/24 History (Acetaminophen Pain Relief) ibuprofen 400 mg tablet (IBU) 400 mg PO Q6H PRN pain 06/09/24 06/09/24 History triamcinolone acetonide 55 mcg 1 spray intranasal BID 06/09/24 06/09/24 History nasal spray aerosol (Nasacort Allergy) levothyroxine 150 mcg tablet 150 mcg PO DAILY #90 tabs 07/02/24 Rx Laboratory Tests 07/08/24 07/08/24 06:38 06:42 POC Capillary Glucose 104 mg/dl (65-105) Blood Type Pending Antibody Screen Pending Patient hx anesthesia problems: post op nausea/vomiting Family hx anesthesia problems: none Results Review: All pre-operative results and documents have been reviewed as part of the pre- operative evaluation. [facility] Surgical History Surgical History Hx of cholecystectomy Family History Family History Father Melanoma Mother Cancer, skin, squamous cell Hypertension Heart disease Sibling Malignant neoplasm of prostate Grandparent Hypertension Heart disease Cerebrovascular accident Grandparent Diabetes mellitus Heart disease Cerebrovascular accident Social History Social History Social History: Caffeine- 5 cans of diet soda daily Smoking status: Never smoker Second hand tobacco smoke exposure: Yes Additional smoking assessment comments: DENIES ANY FORM OF TOBACCO USE Alcohol intake: current Alcohol use details: Monthly Substance use: never Do You Feel Safe in your Home?: Yes Lack of Transportation: No Lack of Food: Never True Current Housing: I Have Housing Concerned About Future Housing: No Difficulty Paying Gas/Electric Bills: No Difficulty Paying for Meds: No Currently Unemployed: No Education: Master's Degree or Higher Difficulty w/ Childcare or Family Care: No Living arrangements: with family Occupation/Education: occupation Additional occupation/education comments: [employer] Gender identity (if verbalized by the patient): Female Spiritual care concerns: No Agree to blood products: Yes Anes - Eval Final PreProcedure Day of Procedure 07/08/24 07:04 Patient weight: obese Heart: regular rate and rhythm Lungs: clear to auscultation Airway: Mallampati scale class II Neurological: alert and oriented Last oral intake: >/= 8 hours ASA classification: III Emergent: no Anesthetic plan: proceed Anesthesia type and monitoring: general ETT and standard monitoring Results Review: All pre-operative results and documents have been reviewed as part of the pre- operative evaluation. Informed Consent: The patient's anesthetic plan and its attendant risks and benefits were discussed with the patient/family/POA. Questions were solicited and answers provided to the satisfaction of the patient/family/POA.
--- NOTE | 2024-07-08 07:07 | WPDHPUPDATE1 ---
History and Physical Update Update Date/Time: 07/08/24 07:07 History and Physical has been reviewed, including an updated exam of the patient. There are NO changes in the patient's condition. Risks, benefits, and alternatives have been discussed and questions answered. Patient agrees to proceed with procedure.
[2024-07-08] MEDS: SCOPOLAMINE 1 MG PATCH 1 PATCH TRANSDERM (07:22)
[2024-07-08] MEDS: ceFAZolin 2 GM/D5W 50 ML 2 GM/50 ML BAG IVPB ×3 (07:26→23:33)
[2024-07-08] MEDS: SODIUM CHLORIDE 0.9% IV 37.7 ML, MORPHINE SULFATE INJ (*CRX) 2 MG, ROPivacaine HCL 1% 2... INFILTRATE (08:29)
--- NOTE | 2024-07-08 09:30 | P.OP_ITS ---
Procedure Note - Detailed Date of Procedure 07/08/24 Pre-op Diagnosis Left hip degenerative arthritis. Post-op Diagnosis Same Procedure Performed Left Total Hip Arthroplasty Surgeon Antoni De Jesus MD E Learning Manager Shamika Hill PA-C Anesthesia General Findings Small bone stature. Description of Procedure The patient was given preoperative antibiotics. A general anesthetic was administered. The patient was carefully placed in the lateral decubitus position on the PEG board. The shoulders and hips were carefully positioned for component and leg length positioning reference. The hip was prepped and draped in the usual sterile fashion. A longitudinal incision was created over the posterior aspect of the greater trochanter. Careful dissection was brought down through the deep fascia with electrocautery. A minimally invasive optimized posterior approach to the hip was performed. The short external rotators and capsule were taken down in an L-shaped capsulotomy. The tissue was tagged for later repair using number 2 high strength suture. The femoral neck was measured and taken in situ. The femoral head was removed. The acetabulum was carefully exposed. The inferior capsule was released. The labrum was resected. The acetabulum was sequentially reamed to one over the intended cup size. The cup was impacted into position with excellent press-fit. Typical anatomic landmarks, including the bony contact points as well as the inferior transverse acetabular ligament were used to confirm cup positioning with preoperative templating. Attention was turned to the femur, which was carefully exposed. The hip was reamed and then broached sequentially. Excellent press-fit was obtained with the broach. The hip was trialed. Measurements were utilized, including the lesser trochanter as well as the center of the femoral head and the tip of the trochanter, and excellent assessment of the offset and leg lengths were confirmed. The real component was impacted into position. Trialing confirmed appropriate leg length and offset with soft tissue balancing as well apparent feel of the leg, both at the knee and the heel. Soft tissues were assessed using the the iliotibial band. Reduction of the posterior capsule and external rotators were also used as a secondary assessment. The hip was copiously irrigated with pulsatile lavage periodically throughout the procedure. The real components were then assembled and reduced. The hip was stable throughout typical maneuvers, including extension, external rotation to 70 degrees, the position of sleep as well as flexion to 90 degrees with internal rotation past 35 degrees. The shake test confirmed stability without impingement. Osteophytes were removed as necessary. The short external rotators and capsule were repaired back to the posterior trochanter through drill holes. The deep fascia was repaired with running number 2 barbed suture, followed by 2-0 Stratafix suture and 3-0 Stratafix suture in the dermis. Steri-Strips were placed on the skin, followed by a sterile occlusive dressing. There were no complications. Meticulous hemostasis was maintained with the AquaMantys device. The patient was brought to the recovery room in stable condition. There were no complications. Physician laboratory chemical assistant, Shamika Hill PA-C, required for surgery; including patient positioning, draping, tissue retraction, maintaining instrument position, hip dislocation/ relocation, wound closure, and dressing placement. Implants The Accolade II hip stem, 132 degree size 3 , was utilized with excellent press-fit. The 50 mm Trident II acetabular component was impacted with excellent press-fit stability. Standard polyethylene liner the +0, 36 mm Biolox ceramic femoral head was utilized. Estimated Blood Loss 300 Drains No Packing No Pathology None sent Complications No immediate complications Condition Stable Disposition PACU [facility] Billing Surgery - Charge Forward: Surgery Billing
[2024-07-08 10:07] LABS: Glucose Point of Care 124 mg/dl (65-105)
--- NOTE | 2024-07-08 10:55 | ADMGEN ---
This patient, Malinda Garrido, was admitted to [facility] Surgery-1. Patient/family oriented to hospital policies and general routines including ID bracelet, bed and alarms, visiting hours, pain management, procedures, bathroom and other care routines, personal items, smoking policy, room service/diet, and visiting hours. Information on how to activate the Rapid Response Team has been discussed. Patient/Family are encouraged to report perceived risks to care and to ask questions if they do not understand what they are told or what they should do. Patient is currently in pre-op room 11, Surgery IP Overeflow awaiting room availability on the medical floor. Patient will be transferred to a room as soon as it is available.
[2024-07-08] MEDS: ONDANSETRON INJ 4 MG/2 ML VIAL IV PUSH (11:04)
[2024-07-08] MEDS: ACETAMINOPHEN 325 MG TABLET 650 MG PO ×3 (11:32→23:33)
[2024-07-08] MEDS: SODIUM CHLORIDE 0.9% IV 1,000 ML 125 ML IV CONT (11:32)
[2024-07-08] MEDS: diphenhydrAMINE HCl INJ 50 MG/ML VIAL 25 MG IV PUSH (11:59)
--- NOTE | 2024-07-08 12:14 | PC.NURSE ---
Patient being transferred to [address] [place] [address] room 312 in stretcher, belongings sent with patient, glasses on patient and at bedside.
[2024-07-08] MEDS: MELOXICAM 7.5 MG TABLET PO (17:35)
[2024-07-08] MEDS: SENNA/DOCUSATE SODIUM TABLET 2 TAB PO (17:35)
--- NOTE | 2024-07-08 18:07 | WPDANESPN ---
Anes - Prog Note Post-Op Date/Time: 07/08/24 18:07 Cardiovascular status: normal Respiratory status: normal Airway patency: baseline Mental status: baseline Post-Op hydration status: normal Vital Signs: Last Vital Signs Temp 36.4 C L 07/08/24 16:31 Pulse 88 07/08/24 16:31 Resp 16 07/08/24 16:31 BP 115/60 07/08/24 16:31 Pulse Ox 99 07/08/24 16:31 O2 Del Method Room Air 07/08/24 14:06 O2 Flow Rate 6 07/08/24 10:20 Pain Score (VAS): 3/10 I/O: Intake & Output 07/08/24 07/08/24 07/08/24 07:59 15:59 23:59 Intake Total 50 250 Balance 50 250 07/08/24 07/08/24 07/08/24 06:38 06:42 10:05 POC Capillary Glucose 104 124 H Blood Type A Positive Antibody Screen Negative Post-procedural complaints: none Patient Feedback: Patient satisfied with anesthetic care.
[2024-07-08] MEDS: ASPIRIN 81 MG ENTERIC TABLET PO (20:39)
[2024-07-08] MEDS: FAMOTIDINE 20 MG TABLET PO (20:39)
[2024-07-08] MEDS: traMADol HCL (*CRX) 50 MG TABLET PO (20:40)
[2024-07-09 00:35] VITALS: BP 108/58; PULSE 66; RESP 18; TEMP 36.9; O2SAT 100
[2024-07-09 04:35] VITALS: BP 119/49; PULSE 62; RESP 18; TEMP 36.4; O2SAT 96
[2024-07-09] MEDS: ACETAMINOPHEN 325 MG TABLET 650 MG PO (05:55)
[2024-07-09] MEDS: LEVOTHYROXINE SODIUM 150 MCG TABLET PO (05:55)
[2024-07-09] MEDS: traMADol HCL (*CRX) 50 MG TABLET PO (05:56)
[2024-07-09 06:26] LABS: Basophils Percent Auto 0.2 % (0.2-1.2); Eosinophils Percent Auto 0.1 % (0-4.4); Hematocrit 32.6 % (37.0-47.0); Hemoglobin 10.7 g/dL (12.0-15.0); Immature Granulocyte Absolute 0.05 K/mm3 (0.00-0.031); Immature Granulocyte Percent A 0.4 % (0-0.5); Lymphocytes Absolute Auto 2.24 K/mm3 (0.9-3.2); Lymphocytes Percent Auto 15.9 % (18.3-44.2); Mean Corpuscular HGB Conc 32.8 g/dl (32-36); Mean Corpuscular Hemoglobin 31.7 pg (26-34); Mean Corpuscular Volume 96.4 fl (80-100); Mean Platelet Volume 9.7 fl (7.4-10.4); Monocytes Percent Auto 6.9 % (2.6-8.5); Neutrophils Absolute Auto 10.8 K/mm3 (1.3-6.7); Neutrophils Percent Auto 76.5 % (45.5-73.1); Platelet Count Result 265 k/mm3 (150-375); Red Blood Count 3.38 M/mm3 (4.2-5.4); Red Cell Distribution Width 12.5 % (11.5-14.5); White Blood Count 14.1 K/mm3 (4.5-10.0)
[2024-07-09 06:56] LABS: Anion Gap 7 mmol/L (4-12); Blood Urea Nitrogen 15 mg/dL (7-17); Calcium 9.5 mg/dL (8.4-10.2); Carbon Dioxide 26 mmol/L (22-30); Chloride 104 mmol/L (98-107); Estimated CRCL calculation 77 ml/min; Estimated Glomerular Filt Rate > 60; Glucose 120 mg/dL (65-110); Sodium 137 mmol/L (137-145)
--- NOTE | 2024-07-09 08:10 | WPDANESPN ---
Anes - Prog Note Post-Op Date/Time: 07/09/24 08:10 Cardiovascular status: normal Respiratory status: normal Airway patency: baseline Mental status: baseline Post-Op hydration status: normal Vital Signs: Last Vital Signs Temp 97.6 F 07/09/24 04:35 Pulse 62 07/09/24 04:35 Resp 18 07/09/24 04:35 BP 119/49 L 07/09/24 04:35 Pulse Ox 96 07/09/24 04:35 O2 Del Method Room Air 07/08/24 20:00 O2 Flow Rate 6 07/08/24 10:20 Pain Score (VAS): 0 I/O: Intake & Output 07/08/24 07/09/24 07/09/24 23:59 07:59 15:59 Intake Total 1030 1550 Balance 1030 1550 Laboratory Tests 07/09/24 06:20 07/09/24 06:20 07/08/24 07/09/24 10:05 06:20 WBC 14.1 H RBC 3.38 L Hgb 10.7 L Hct 32.6 L MCV 96.4 MCH 31.7 MCHC 32.8 RDW 12.5 Plt Count 265 MPV 9.7 Immature Gran % (Auto) 0.4 Neut % (Auto) 76.5 H Lymph % (Auto) 15.9 L Dubois % (Auto) 6.9 Eos % (Auto) 0.1 Baso % (Auto) 0.2 Lymph # (Auto) 2.24 Dubois # (Auto) 1.0 H Eos # (Auto) 0.0 Baso # (Auto) 0.0 Abs Immat Gran (auto) 0.05 H Absolute Neuts (auto) 10.8 H Absolute Nucleated RBC 0.000 Nucleated RBC % 0.0 Sodium 137 Potassium 4.0 Chloride 104 Carbon Dioxide 26 Anion Gap 7 BUN 15 D Creatinine 0.85 Estim Creat Clear Calc 77 Estimated GFR > 60 Glucose 120 H POC Capillary Glucose 124 H Calcium 9.5 Post-procedural complaints: none Patient Feedback: Patient satisfied with anesthetic care.
[2024-07-09 08:35] VITALS: BP 109/65; PULSE 66; RESP 18; TEMP 35.9; O2SAT 98
[2024-07-09] MEDS: SPIRONOLACTONE 50 MG TABLET 100 MG PO (09:12)
[2024-07-09] MEDS: metFORMIN HCL 500 MG TABLET 1000 MG PO (09:12)
[2024-07-09] MEDS: MELOXICAM 7.5 MG TABLET PO (09:13)
[2024-07-09] MEDS: FAMOTIDINE 20 MG TABLET PO (09:13)
[2024-07-09] MEDS: polyethylene glycoL 3350 17 GM POWD.PACK PO (09:13)
[2024-07-09] MEDS: ASPIRIN 81 MG ENTERIC TABLET PO (09:13)
[2024-07-09] MEDS: SENNA/DOCUSATE SODIUM TABLET 2 TAB PO (09:13)
--- NOTE | 2024-07-09 11:54 | PCPTNOTE ---
On 07/09/24, the student, MARIA DE JESUS Sheppard, provided care and completed [facility] documentation on this patient. I have reviewed the student's documentation and agree with the findings.
== END 2024-07-09 10:55 | disposition home or self-care (01) ==
LOC: ANHSURGERY 07:25 → ANHSUROVER 10:55 → ANH3MEDSUR 12:16
PROVIDERS: Physician Assistant Surgical; PCP Clinical Nurse Specialist; Visit Provider Orthopaedic Surgery
PROC: (CPT 27130; principal; 2024-07-08 07:30)
DX: M16.12 Unilateral primary osteoarthritis, left hip (principal); E03.9 Hypothyroidism, unspecified; E78.5 Hyperlipidemia, unspecified; R73.03 Prediabetes; Z79.84 Long term (current) use of oral hypoglycemic drugs; E66.9 Obesity, unspecified; Z68.38 Body mass index [BMI] 38.0-38.9, adult
CPT/HCPCS: 27130; 36415; 73502; 80048; 80307; 82274; 82948; 83036; 85025; 86850; 86900; 86901; 87641; 97110; 97116; 97161; 97165; 97530; 97535; A9270; C1776; J0171; J0690; J1100; J1171; J1200; J1885; J2003; J2250; J2270; J2405; J2704; J2795; J3010; J7030; J7120

== ENCOUNTER 2024-10-15 12:12 | Outpatient (CLI) | payer BC, SELFPAY ==
--- NOTE | ~2024-10-15 | MM_ITS ---
EXAMINATION: MM screening cherrie BI w hannah HISTORY: Screening TECHNIQUE: Craniocaudal and mediolateral oblique 3-D tomosynthesis images were obtained and synthetic 2-D images were generated. CAD analysis was submitted and interpreted. COMPARISON: Comparison to multiple prior studies sequentially, with oldest reviewed study dated 09/2020. BREAST PARENCHYMAL COMPOSITION: Not dense: There are scattered areas of fibroglandular density. FINDINGS: There is no evidence of suspicious mass, calcification, or architectural distortion to sugg est malignancy in either breast. There has been no suspicious interval change. IMPRESSION: 1. No mammographic evidence of malignancy. 2. Recommend routine screening mammography in one year. BI-RADS Category 1: Negative Reviewed, dictated and finalized at location B.
== END 2024-10-15 12:13 | disposition home or self-care (01) ==
LOC: MICIMG 10-16 12:12
PROVIDERS: PCP Clinical Nurse Specialist; Visit Provider Obstetrics & Gynecology
DX: Z12.31 Encounter for screening mammogram for malignant neoplasm of breast (principal)
CPT/HCPCS: 77063; 77067